=== PATIENT | female | born 1945 | race Caucasian/White ===

== ENCOUNTER 2020-02-24 13:21 | Inpatient (IN) | payer OTHER, MEDICAID, SELFPAY ==
[~2020-02-24] VITALS: Ht 152.4 cm; Wt 59.0 kg
[2020-02-24] VITALS (7 sets, daily range): BP systolic 87–178
[2020-02-24] MEDS ORDERED: NS 1000 ML IV.SOLN IV ONE (14:00)
[2020-02-24] MEDS ORDERED: PIPERACILLIN/TAZO 3.375 GM in NS 50 ML IV ONE (14:00)
[2020-02-24] MEDS ORDERED: MORPHINE 4 MG/ML INJ. SYRINGE IVP ONE (14:00)
[2020-02-24] MEDS ORDERED: PIPERACILLIN/TAZOBACTAM 3.375 GM/VIAL (ZOSYN) IV ONE (14:15)
[2020-02-24 14:17] LABS: BASOPHILS % (AUTO) 0.2 % (0.0-2.0); EOSINOPHILS % (AUTO) 0.1 % (0.0-4.0); HEMATOCRIT 43.7 % (36-48); HEMOGLOBIN 13.3 g/dL (12.0-16.0); LYMPHOCYTES # (AUTO) 1.2 K/uL (1.0-5.5); LYMPHOCYTES % (AUTO) 9.6 % (20.5-51.5); MEAN CORPUSCULAR HEMOGLOBIN 27 pg (27-31); MEAN CORPUSCULAR HGB CONC 31 % (32-36); MEAN CORPUSCULAR VOLUME 87 fL (79.0-98.0); MONOCYTES # (AUTO) 0.5 K/uL (0.0-1.0); MONOCYTES % (AUTO) 4.3 % (1.7-9.3); NEUTROPHILS # (AUTO) 10.3 K/uL (1.8-7.7); NEUTROPHILS % (AUTO) 85.8 % (40.0-70.0); PLATELET COUNT (AUTO) 145 K/uL (130-430); RED BLOOD CELL COUNT(AUTO) 5.03 MIL/uL (4.2-6.2)
[2020-02-24 14:31] LABS: ANION GAP 16 (5-15); CALCIUM 8.5 mg/dL (8.4-11.0); CREATININE 2.83 mg/dL (0.55-1.30); POTASSIUM 3.5 mmol/L (3.5-5.1); UREA NITROGEN, BLOOD 83 mg/dL (8-21)
[2020-02-24 14:35] LABS: ALANINE AMINOTRANSFERASE 20 U/L (12-78); ALBUMIN 2.9 g/dL (3.4-4.8); ASPARTATE AMINOTRANSFERASE 15 U/L (10-37); INR 1.2 (0.8-1.2); PROTHROMBIN TIME 11.9 SECS (9.5-12.5); TOTAL BILIRUBIN 0.4 mg/dL (0.0-1.0)
[2020-02-24 14:36] LABS: CHLORIDE 133 mmol/L (98-107); SODIUM SERUM 171 mmol/L (136-145)
[2020-02-24 14:37] LABS: GLUCOSE 472 mg/dL (70-99)
[2020-02-24] MEDS ORDERED: ACET-2165 PO (14:42)
[2020-02-24] MEDS ORDERED: ONDA4TAB5 PO (14:42)
[2020-02-24] MEDS ORDERED: IPRA4AER INH (14:42)
[2020-02-24 15:27] LABS: BILIRUBIN,URINE NEGATIVE (NEGATIVE); BLOOD, URINE 3+ (NEGATIVE); COLOR,URINE YELLOW (YELLOW); GLUCOSE,URINE NEGATIVE (NEGATIVE); KETONES,URINE NEGATIVE (NEGATIVE); LEUKOCYTE ESTERASE ,URINE NEGATIVE (NEGATIVE); NITRITE, URINE NEGATIVE (NEGATIVE); PH,URINE 5.5 (5.0-8.0); PROTEIN URINE NEGATIVE (NEGATIVE); UROBILINOGEN,URINE 0.2 (0.2-1.0)
[2020-02-24] MEDS ORDERED: 0.45% NACL 1,000 ML IV ONE (15:45)
[2020-02-24 15:55] LABS: CLARITY/URINE SLIGHTLY HAZY (CLEAR)
[2020-02-24 16:05] LABS: BACTERIA,URINE RARE /HPF (None Seen); WBC,URINE 0-3 /HPF (0-3)
[2020-02-24] MEDS ORDERED: 0.45% NACL 1,000 ML IV SCH (18:27)
[2020-02-24] MEDS ORDERED: LevALBUTEROL HCL 1.25 MG/0.5 ML *CONC.* VIAL.NEB (XOPENEX CONC.) INH SCH (19:00)
[2020-02-24] MEDS ORDERED: LevALBUTEROL HCL 1.25 MG/0.5 ML *CONC.* VIAL.NEB (XOPENEX CONC.) INH PRN (19:00)
[2020-02-24] MEDS ORDERED: MEROPENEM 500 MG in NS 50 ML IV ONE (19:30)
[2020-02-24] MEDS: KCL 20 mEq in 0.45% NS 1000 mL 1,000 ML IV SCH (20:35)
[2020-02-24] MEDS: ACETAMINOPHEN 650 MG SUPP.RECT RC PRN (20:38)
[2020-02-24] MEDS: INSULIN REGULAR, HUMAN 100 UNITS/ML, 10 ML VIAL (humuLIN R) SUBCUT PRN ×2 (20:38→23:14)
[2020-02-24] MEDS ORDERED: NOREPINEPHRINE 4 MG/4 ML VIAL IV ONE (23:21)
[2020-02-24] MEDS: NOREPINEPHRINE BITARTRATE 4 MG in NS 246 ML IV PRN (23:23)
[2020-02-24] MEDS: LevALBUTEROL HCL 1.25 MG/0.5 ML *CONC.* VIAL.NEB (XOPENEX CONC.) INH SCH (23:54)
[2020-02-25] VITALS (24 sets, daily range): BP systolic 93–121
[2020-02-25] MEDS: KCL 20 mEq in 0.45% NS 1000 mL 1,000 ML IV SCH ×3 (03:56→20:11)
[2020-02-25] MEDS: ACETAMINOPHEN 650 MG SUPP.RECT RC PRN (03:56)
[2020-02-25 06:58] LABS: HEMATOCRIT 37.5 % (36-48); HEMOGLOBIN 11.3 g/dL (12.0-16.0); MEAN CORPUSCULAR HEMOGLOBIN 26 pg (27-31); MEAN CORPUSCULAR HGB CONC 30 % (32-36); MEAN CORPUSCULAR VOLUME 86 fL (79.0-98.0); PLATELET COUNT (AUTO) 106 K/uL (130-430); RED BLOOD CELL COUNT(AUTO) 4.35 MIL/uL (4.2-6.2); RED CELL DISTRIBUTION WIDTH 16.7 % (9.0-15.0); WHITE BLOOD COUNT (AUTO) 23.9 K/uL (4.8-10.8)
[2020-02-25 07:05] LABS: ANION GAP 11 (5-15); CALCIUM 7.6 mg/dL (8.4-11.0); CREATININE 2.85 mg/dL (0.55-1.30); GLUCOSE 218 mg/dL (70-99); POTASSIUM 3.6 mmol/L (3.5-5.1); UREA NITROGEN, BLOOD 88 mg/dL (8-21)
[2020-02-25 07:31] LABS: ATYPICAL LYMPHOCYTES % 0 % (0-0); BAND % (MANUAL) 8 % (0-6); BASOPHILS % (MANUAL) 0 % (0-2); EOSINOPHILS % (MANUAL) 0 % (0-7); LYMPHOCYTES % (MANUAL) 10 % (20-46); MONOCYTES % (MANUAL) 2 % (0-11)
[2020-02-25 07:43] LABS: CHLORIDE 134 mmol/L (98-107); SODIUM SERUM 164 mmol/L (136-145)
[2020-02-25] MEDS: MEROPENEM 500 MG in NS 50 ML IV SCH ×2 (08:44→20:11)
[2020-02-25] MEDS: LevALBUTEROL HCL 1.25 MG/0.5 ML *CONC.* VIAL.NEB (XOPENEX CONC.) INH SCH ×2 (09:09→14:54)
[2020-02-25] MEDS: INSULIN REGULAR, HUMAN 100 UNITS/ML, 10 ML VIAL (humuLIN R) SUBCUT PRN ×3 (13:16→23:39)
[2020-02-25] MEDS: NOREPINEPHRINE BITARTRATE 4 MG in NS 246 ML IV PRN (13:17)
[2020-02-25 13:37] LABS: C-REACTIVE PROTEIN QUANT 93.1 mg/dL (0-0.5)
[2020-02-25] MEDS: ONDANSETRON HCL 4 MG/2 ML VIAL IVP PRN (16:05)
[2020-02-25 17:10] LABS: BASOPHILS % (AUTO) 0.1 % (0.0-2.0); EOSINOPHILS % (AUTO) 0.1 % (0.0-4.0); LYMPHOCYTES # (AUTO) 3.1 K/uL (1.0-5.5); MONOCYTES # (AUTO) 1.4 K/uL (0.0-1.0); MONOCYTES % (AUTO) 5.8 % (1.7-9.3); NEUTROPHILS # (AUTO) 19.3 K/uL (1.8-7.7)
[2020-02-25] MEDS: PANTOPRAZOLE SODIUM 40 MG/VIAL (PROTONIX) IVP SCH (20:11)
[2020-02-25] MEDS: DOXYCYCLINE HYCLATE 100 MG in D5W 100 ML IV SCH (20:11)
[2020-02-25] MEDS ORDERED: DOXYCYCLINE HYCLATE 100 MG CAPSULE PO SCH (21:00)
[2020-02-26] VITALS (25 sets, daily range): BP systolic 93–139
[2020-02-26] MEDS: ACETAMINOPHEN 650 MG SUPP.RECT RC PRN (05:50)
[2020-02-26] MEDS: KCL 20 mEq in 0.45% NS 1000 mL 1,000 ML IV SCH ×2 (08:29→16:53)
[2020-02-26] MEDS: PANTOPRAZOLE SODIUM 40 MG/VIAL (PROTONIX) IVP SCH ×2 (08:29→21:00)
[2020-02-26] MEDS: MEROPENEM 500 MG in NS 50 ML IV SCH ×2 (08:30→21:00)
[2020-02-26] MEDS: NOREPINEPHRINE BITARTRATE 4 MG in NS 246 ML IV PRN (09:35)
[2020-02-26] MEDS: DOXYCYCLINE HYCLATE 100 MG in D5W 100 ML IV SCH ×2 (09:48→21:00)
[2020-02-26] MEDS: INSULIN REGULAR, HUMAN 100 UNITS/ML, 10 ML VIAL (humuLIN R) SUBCUT PRN ×2 (12:47→18:41)
[2020-02-26 13:19] LABS: BASOPHILS % (AUTO) 0.1 % (0.0-2.0); EOSINOPHILS % (AUTO) 0.1 % (0.0-4.0); HEMATOCRIT 31.7 % (36-48); HEMOGLOBIN 9.7 g/dL (12.0-16.0); LYMPHOCYTES # (AUTO) 1.7 K/uL (1.0-5.5); LYMPHOCYTES % (AUTO) 10.2 % (20.5-51.5); MEAN CORPUSCULAR HEMOGLOBIN 26 pg (27-31); MEAN CORPUSCULAR HGB CONC 31 % (32-36); MEAN CORPUSCULAR VOLUME 86 fL (79.0-98.0); MONOCYTES # (AUTO) 0.9 K/uL (0.0-1.0); MONOCYTES % (AUTO) 5.5 % (1.7-9.3); NEUTROPHILS # (AUTO) 13.9 K/uL (1.8-7.7); NEUTROPHILS % (AUTO) 84.1 % (40.0-70.0); RED BLOOD CELL COUNT(AUTO) 3.69 MIL/uL (4.2-6.2); RED CELL DISTRIBUTION WIDTH 16.6 % (9.0-15.0)
[2020-02-26 13:25] LABS: WHITE BLOOD COUNT (AUTO) 16.5 K/uL (4.8-10.8)
[2020-02-26 13:48] LABS: PLATELET COUNT (AUTO) 66 K/uL (130-430)
[2020-02-26] MEDS: D5W 1,000 ML IV SCH (18:36)
[2020-02-26 22:55] LABS: INR 1.2 (0.8-1.2)
[2020-02-27] VITALS (23 sets, daily range): BP systolic 97–136
[2020-02-27] MEDS: INSULIN REGULAR, HUMAN 100 UNITS/ML, 10 ML VIAL (humuLIN R) SUBCUT PRN ×4 (00:22→17:33)
[2020-02-27] MEDS: D5W 1,000 ML IV SCH ×2 (05:15→15:22)
[2020-02-27 05:41] LABS: BASOPHILS % (AUTO) 0.2 % (0.0-2.0); EOSINOPHILS # (AUTO) 0.1 K/uL (0.0-0.4); EOSINOPHILS % (AUTO) 0.7 % (0.0-4.0); HEMATOCRIT 28.8 % (36-48); LYMPHOCYTES # (AUTO) 1.8 K/uL (1.0-5.5); LYMPHOCYTES % (AUTO) 13.1 % (20.5-51.5); MEAN CORPUSCULAR HEMOGLOBIN 26 pg (27-31); MEAN CORPUSCULAR HGB CONC 31 % (32-36); MEAN CORPUSCULAR VOLUME 84 fL (79.0-98.0); MONOCYTES # (AUTO) 0.7 K/uL (0.0-1.0); MONOCYTES % (AUTO) 4.7 % (1.7-9.3); NEUTROPHILS # (AUTO) 11.3 K/uL (1.8-7.7); NEUTROPHILS % (AUTO) 81.3 % (40.0-70.0); RED BLOOD CELL COUNT(AUTO) 3.42 MIL/uL (4.2-6.2); RED CELL DISTRIBUTION WIDTH 16.7 % (9.0-15.0); WHITE BLOOD COUNT (AUTO) 13.9 K/uL (4.8-10.8)
[2020-02-27 05:50] LABS: ALANINE AMINOTRANSFERASE 25 U/L (12-78); ALBUMIN 1.6 g/dL (3.4-4.8); ANION GAP 12 (5-15); ASPARTATE AMINOTRANSFERASE 28 U/L (10-37); CALCIUM 7.4 mg/dL (8.4-11.0); CREATININE 1.12 mg/dL (0.55-1.30); GLUCOSE 301 mg/dL (70-99); SODIUM SERUM 152 mmol/L (136-145); TOTAL BILIRUBIN 0.7 mg/dL (0.0-1.0); UREA NITROGEN, BLOOD 28 mg/dL (8-21)
[2020-02-27 05:55] LABS: CHLORIDE 122 mmol/L (98-107)
[2020-02-27 05:57] LABS: PLATELET COUNT (AUTO) 61 K/uL (130-430)
[2020-02-27] MEDS: DOXYCYCLINE HYCLATE 100 MG in D5W 100 ML IV SCH ×2 (09:05→21:31)
[2020-02-27] MEDS: MEROPENEM 500 MG in NS 50 ML IV SCH ×2 (09:05→21:30)
[2020-02-27] MEDS: PANTOPRAZOLE SODIUM 40 MG/VIAL (PROTONIX) IVP SCH ×2 (09:05→21:31)
[2020-02-27] MEDS ORDERED: KCL 40 mEq in 100 mL (PREMIX) 100 ML IV ONE (13:15)
[2020-02-27] MEDS ORDERED: DEXTROSE 50% JECT 50 ML DISP.SYRIN IVP PRN (16:15)
[2020-02-27] MEDS ORDERED: *TPN PER PHARMACY XX PRN (16:15)
[2020-02-28] VITALS (24 sets, daily range): BP systolic 90–129
[2020-02-28] MEDS: INSULIN REGULAR, HUMAN 100 UNITS/ML, 10 ML VIAL (humuLIN R) SUBCUT PRN ×3 (01:11→11:41)
[2020-02-28] MEDS: D5W 1,000 ML IV SCH ×2 (01:18→17:49)
[2020-02-28 06:03] LABS: BASOPHILS # (AUTO) 0.1 K/uL (0.0-0.2); BASOPHILS % (AUTO) 0.8 % (0.0-2.0); EOSINOPHILS # (AUTO) 0.2 K/uL (0.0-0.4); HEMATOCRIT 27.1 % (36-48); HEMOGLOBIN 8.6 g/dL (12.0-16.0); LYMPHOCYTES # (AUTO) 1.3 K/uL (1.0-5.5); LYMPHOCYTES % (AUTO) 12.1 % (20.5-51.5); MEAN CORPUSCULAR HEMOGLOBIN 27 pg (27-31); MEAN CORPUSCULAR HGB CONC 32 % (32-36); MEAN CORPUSCULAR VOLUME 84 fL (79.0-98.0); MONOCYTES # (AUTO) 0.6 K/uL (0.0-1.0); MONOCYTES % (AUTO) 5.7 % (1.7-9.3); NEUTROPHILS # (AUTO) 8.7 K/uL (1.8-7.7); NEUTROPHILS % (AUTO) 79.4 % (40.0-70.0); PLATELET COUNT (AUTO) 61 K/uL (130-430); RED BLOOD CELL COUNT(AUTO) 3.24 MIL/uL (4.2-6.2); RED CELL DISTRIBUTION WIDTH 16.4 % (9.0-15.0); WHITE BLOOD COUNT (AUTO) 10.9 K/uL (4.8-10.8)
[2020-02-28 06:33] LABS: ALANINE AMINOTRANSFERASE 31 U/L (12-78); ALBUMIN 1.3 g/dL (3.4-4.8); ANION GAP 10 (5-15); ASPARTATE AMINOTRANSFERASE 27 U/L (10-37); CHLORIDE 115 mmol/L (98-107); CREATININE 0.82 mg/dL (0.55-1.30); GLUCOSE 291 mg/dL (70-99); PHOSPHORUS 1.5 mg/dL (2.7-4.5); POTASSIUM 3.3 mmol/L (3.5-5.1); SODIUM SERUM 146 mmol/L (136-145); TOTAL BILIRUBIN 0.7 mg/dL (0.0-1.0); UREA NITROGEN, BLOOD 16 mg/dL (8-21)
[2020-02-28 06:56] LABS: CALCIUM 6.9 mg/dL (8.4-11.0)
[2020-02-28 08:37] LABS: TRIGLYCERIDES 164 mg/dL (30-150)
[2020-02-28] MEDS: MEROPENEM 500 MG in NS 50 ML IV SCH ×2 (08:43→20:59)
[2020-02-28] MEDS: DOXYCYCLINE HYCLATE 100 MG in D5W 100 ML IV SCH ×2 (08:43→20:59)
[2020-02-28] MEDS: PANTOPRAZOLE SODIUM 40 MG/VIAL (PROTONIX) IVP SCH ×2 (08:43→21:04)
[2020-02-28] MEDS ORDERED: K PHOS 30 MM in NS 250 ML IV ONE (09:45)
[2020-02-28] MEDS ORDERED: CALCIUM GLUCONATE 2 GM in NS 100 ML IV ONE (09:45)
[2020-02-28] MEDS: TPN CENTRAL IV SCH ×8 (21:00)
[2020-02-28] MEDS: MVI IV SCH ×8 (21:00)
[2020-02-28] MEDS: K PHOS IV SCH ×8 (21:00)
[2020-02-28] MEDS ORDERED: D5W 1,000 ML IV SCH (21:00)
[2020-02-28] MEDS: CALCIUM CHLORIDE IV SCH ×8 (21:00)
[2020-02-28] MEDS: [UNRECOGNIZED DRUG - OTHER] IV SCH ×8 (21:00)
[2020-02-28] MEDS: FAT EMULSIONS 250 ML IV SCH (21:04)
[2020-02-29] VITALS (23 sets, daily range): BP systolic 90–123
[2020-02-29] MEDS: INSULIN REGULAR, HUMAN 100 UNITS/ML, 10 ML VIAL (humuLIN R) SUBCUT PRN ×5 (00:06→23:55)
[2020-02-29 06:51] LABS: ALBUMIN 1.4 g/dL (3.4-4.8); ANION GAP 12 (5-15); CHLORIDE 108 mmol/L (98-107); CREATININE 0.88 mg/dL (0.55-1.30); PHOSPHORUS 2.7 mg/dL (2.7-4.5); POTASSIUM 3.2 mmol/L (3.5-5.1); SODIUM SERUM 142 mmol/L (136-145); TOTAL BILIRUBIN 0.8 mg/dL (0.0-1.0); UREA NITROGEN, BLOOD 19 mg/dL (8-21)
[2020-02-29 07:01] LABS: BASOPHILS % (AUTO) 0.2 % (0.0-2.0); EOSINOPHILS # (AUTO) 0.1 K/uL (0.0-0.4); EOSINOPHILS % (AUTO) 1.9 % (0.0-4.0); HEMATOCRIT 28.6 % (36-48); HEMOGLOBIN 9.2 g/dL (12.0-16.0); LYMPHOCYTES # (AUTO) 1.1 K/uL (1.0-5.5); LYMPHOCYTES % (AUTO) 16.3 % (20.5-51.5); MEAN CORPUSCULAR HEMOGLOBIN 27 pg (27-31); MEAN CORPUSCULAR HGB CONC 32 % (32-36); MEAN CORPUSCULAR VOLUME 83 fL (79.0-98.0); MONOCYTES # (AUTO) 0.5 K/uL (0.0-1.0); MONOCYTES % (AUTO) 6.9 % (1.7-9.3); NEUTROPHILS # (AUTO) 5.2 K/uL (1.8-7.7); NEUTROPHILS % (AUTO) 74.7 % (40.0-70.0); PLATELET COUNT (AUTO) 84 K/uL (130-430); RED BLOOD CELL COUNT(AUTO) 3.46 MIL/uL (4.2-6.2); RED CELL DISTRIBUTION WIDTH 16.4 % (9.0-15.0)
[2020-02-29] MEDS: 0.45% NACL 1,000 ML IV SCH (08:19)
[2020-02-29] MEDS: DOXYCYCLINE HYCLATE 100 MG in D5W 100 ML IV SCH ×2 (08:20→22:25)
[2020-02-29] MEDS: MEROPENEM 500 MG in NS 50 ML IV SCH ×2 (08:20→22:15)
[2020-02-29] MEDS: PANTOPRAZOLE SODIUM 40 MG/VIAL (PROTONIX) IVP SCH ×2 (08:20→22:16)
[2020-02-29 08:21] LABS: GLUCOSE 426 mg/dL (70-99)
[2020-02-29 08:22] LABS: ALANINE AMINOTRANSFERASE 73 U/L (12-78); ASPARTATE AMINOTRANSFERASE 155 U/L (10-37)
[2020-02-29] MEDS ORDERED: POTASSIUM CHLORIDE 40 MEQ in NS 250 ML IV ONE (19:45)
[2020-02-29] MEDS ORDERED: KCL 40 mEq in 100 mL (PREMIX) 100 ML IV SCH (20:00)
[2020-02-29] MEDS: K PHOS IV SCH ×8 (20:52)
[2020-02-29] MEDS: [UNRECOGNIZED DRUG - OTHER] IV SCH ×8 (20:52)
[2020-02-29] MEDS: CALCIUM CHLORIDE IV SCH ×8 (20:52)
[2020-02-29] MEDS: TPN CENTRAL IV SCH ×8 (20:52)
[2020-02-29] MEDS: MVI IV SCH ×8 (20:52)
[2020-02-29] MEDS ORDERED: TPN CENTRAL IV SCH ×9 (21:00)
[2020-02-29] MEDS ORDERED: K PHOS IV SCH ×9 (21:00)
[2020-02-29] MEDS ORDERED: MVI IV SCH ×9 (21:00)
[2020-02-29] MEDS ORDERED: [UNRECOGNIZED DRUG - OTHER] IV SCH ×9 (21:00)
[2020-02-29] MEDS ORDERED: CALCIUM GLUCONATE IV SCH ×9 (21:00)
[2020-02-29] MEDS: FAT EMULSIONS 250 ML IV SCH (22:22)
[2020-03-01] VITALS (25 sets, daily range): BP systolic 86–128
[2020-03-01 05:29] LABS: ALANINE AMINOTRANSFERASE 47 U/L (12-78); ALBUMIN 1.3 g/dL (3.4-4.8); ANION GAP 12 (5-15); CALCIUM 7.2 mg/dL (8.4-11.0); CHLORIDE 108 mmol/L (98-107); CREATININE 0.88 mg/dL (0.55-1.30); GLUCOSE 369 mg/dL (70-99); PHOSPHORUS 1.9 mg/dL (2.7-4.5); POTASSIUM 3.3 mmol/L (3.5-5.1); SODIUM SERUM 139 mmol/L (136-145); TOTAL BILIRUBIN 0.4 mg/dL (0.0-1.0); UREA NITROGEN, BLOOD 21 mg/dL (8-21)
[2020-03-01 05:32] LABS: ASPARTATE AMINOTRANSFERASE 41 U/L (10-37)
[2020-03-01] MEDS: 0.45% NACL 1,000 ML IV SCH (06:38)
[2020-03-01] MEDS: INSULIN REGULAR, HUMAN 100 UNITS/ML, 10 ML VIAL (humuLIN R) SUBCUT PRN ×3 (06:41→19:00)
[2020-03-01] MEDS: MEROPENEM 500 MG in NS 50 ML IV SCH ×2 (11:03→21:23)
[2020-03-01] MEDS: PANTOPRAZOLE SODIUM 40 MG/VIAL (PROTONIX) IVP SCH ×2 (11:03→21:23)
[2020-03-01] MEDS: DOXYCYCLINE HYCLATE 100 MG in D5W 100 ML IV SCH ×2 (11:04→21:23)
[2020-03-01] MEDS: KCL 20 mEq in 100 mL (PREMIX) 100 ML IV SCH ×2 (12:30→12:51)
[2020-03-01] MEDS: ONDANSETRON HCL 4 MG/2 ML VIAL IVP PRN (18:57)
[2020-03-01] MEDS: KCL 20 mEq in 0.45% NS 1000 mL 1,000 ML IV SCH (19:01)
[2020-03-01] MEDS ORDERED: MVI IV SCH ×9 (21:00)
[2020-03-01] MEDS ORDERED: K PHOS IV SCH ×9 (21:00)
[2020-03-01] MEDS ORDERED: [UNRECOGNIZED DRUG - OTHER] IV SCH ×9 (21:00)
[2020-03-01] MEDS ORDERED: TPN CENTRAL IV SCH ×9 (21:00)
[2020-03-01] MEDS ORDERED: SODIUM ACETATE IV SCH ×9 (21:00)
[2020-03-01] MEDS: INSULIN GLARGINE 100 UNITS/ML 10 ML VIAL SUBCUT SCH (21:26)
[2020-03-01] MEDS: FAT EMULSIONS 250 ML IV SCH (21:27)
[2020-03-02] VITALS (24 sets, daily range): BP systolic 98–144
[2020-03-02] MEDS: INSULIN REGULAR, HUMAN 100 UNITS/ML, 10 ML VIAL (humuLIN R) SUBCUT PRN ×4 (00:04→19:33)
[2020-03-02 06:10] LABS: BASOPHILS % (AUTO) 0.3 % (0.0-2.0); EOSINOPHILS # (AUTO) 0.3 K/uL (0.0-0.4); EOSINOPHILS % (AUTO) 3.7 % (0.0-4.0); HEMATOCRIT 24.6 % (36-48); HEMOGLOBIN 7.9 g/dL (12.0-16.0); LYMPHOCYTES # (AUTO) 1.3 K/uL (1.0-5.5); LYMPHOCYTES % (AUTO) 16.4 % (20.5-51.5); MEAN CORPUSCULAR HEMOGLOBIN 26 pg (27-31); MEAN CORPUSCULAR HGB CONC 32 % (32-36); MEAN CORPUSCULAR VOLUME 82 fL (79.0-98.0); MONOCYTES # (AUTO) 0.7 K/uL (0.0-1.0); MONOCYTES % (AUTO) 9.2 % (1.7-9.3); NEUTROPHILS # (AUTO) 5.7 K/uL (1.8-7.7); NEUTROPHILS % (AUTO) 70.4 % (40.0-70.0); PLATELET COUNT (AUTO) 134 K/uL (130-430); RED BLOOD CELL COUNT(AUTO) 3.01 MIL/uL (4.2-6.2); RED CELL DISTRIBUTION WIDTH 16.3 % (9.0-15.0); WHITE BLOOD COUNT (AUTO) 8.2 K/uL (4.8-10.8)
[2020-03-02 07:36] LABS: ALANINE AMINOTRANSFERASE 45 U/L (12-78); ALBUMIN 1.2 g/dL (3.4-4.8); ANION GAP 9 (5-15); ASPARTATE AMINOTRANSFERASE 45 U/L (10-37); CALCIUM 7.4 mg/dL (8.4-11.0); CHLORIDE 113 mmol/L (98-107); CREATININE 0.73 mg/dL (0.55-1.30); GLUCOSE 218 mg/dL (70-99); POTASSIUM 3.5 mmol/L (3.5-5.1); SODIUM SERUM 145 mmol/L (136-145); TOTAL BILIRUBIN 0.4 mg/dL (0.0-1.0); UREA NITROGEN, BLOOD 21 mg/dL (8-21)
[2020-03-02] MEDS: MEROPENEM 500 MG in NS 50 ML IV SCH (09:33)
[2020-03-02] MEDS: PANTOPRAZOLE SODIUM 40 MG/VIAL (PROTONIX) IVP SCH ×2 (09:33→21:39)
[2020-03-02] MEDS: DOXYCYCLINE HYCLATE 100 MG in D5W 100 ML IV SCH (09:34)
[2020-03-02] MEDS ORDERED: [UNRECOGNIZED DRUG - OTHER] IV SCH ×18 (10:45→21:00)
[2020-03-02] MEDS ORDERED: TPN CENTRAL IV SCH ×18 (10:45→21:00)
[2020-03-02] MEDS ORDERED: K PHOS IV SCH ×18 (10:45→21:00)
[2020-03-02] MEDS ORDERED: POTASSIUM ACETATE IV SCH ×18 (10:45→21:00)
[2020-03-02] MEDS ORDERED: SODIUM ACETATE IV SCH ×18 (10:45→21:00)
[2020-03-02] MEDS: INSULIN GLARGINE 100 UNITS/ML 10 ML VIAL SUBCUT SCH ×2 (11:19→21:37)
[2020-03-02] MEDS: cefTRIAXone 1 GM in D5W 50 ML IV SCH (12:30)
[2020-03-02] MEDS: metroNIDAZOLE 250 mg/NS 50 ML IV SCH ×2 (14:37→21:28)
[2020-03-02] MEDS ORDERED: ACYCLOVIR OINTMENT Non-Formula 15 GM OINT..GM. TP SCH (18:00)
[2020-03-02] MEDS: KCL 20 mEq in 0.45% NS 1000 mL 1,000 ML IV SCH (19:35)
[2020-03-02] MEDS: FAT EMULSIONS 250 ML IV SCH (21:34)
[2020-03-02] MEDS: DOCOSANOL 2 GM CREAM..G. TP SCH (21:38)
[2020-03-03] VITALS (24 sets, daily range): BP systolic 93–153
[2020-03-03] MEDS: INSULIN REGULAR, HUMAN 100 UNITS/ML, 10 ML VIAL (humuLIN R) SUBCUT PRN ×4 (00:35→17:20)
[2020-03-03] MEDS: metroNIDAZOLE 250 mg/NS 50 ML IV SCH ×3 (05:30→21:12)
[2020-03-03] MEDS: DOCOSANOL 2 GM CREAM..G. TP SCH ×6 (05:31→21:11)
[2020-03-03 05:43] LABS: ANION GAP 7 (5-15); CHLORIDE 109 mmol/L (98-107); CREATININE 0.61 mg/dL (0.55-1.30); GLUCOSE 237 mg/dL (70-99); PHOSPHORUS 2.5 mg/dL (2.7-4.5); POTASSIUM 3.9 mmol/L (3.5-5.1); SODIUM SERUM 143 mmol/L (136-145); UREA NITROGEN, BLOOD 19 mg/dL (8-21)
[2020-03-03] MEDS: PANTOPRAZOLE SODIUM 40 MG/VIAL (PROTONIX) IVP SCH ×2 (08:15→21:09)
[2020-03-03] MEDS: cefTRIAXone 1 GM in D5W 50 ML IV SCH (08:15)
[2020-03-03] MEDS: INSULIN GLARGINE 100 UNITS/ML 10 ML VIAL SUBCUT SCH ×2 (08:18→21:10)
[2020-03-03] MEDS: KCL 20 mEq in 0.45% NS 1000 mL 1,000 ML IV SCH (17:16)
[2020-03-03] MEDS ORDERED: TPN CENTRAL IV SCH ×9 (21:00)
[2020-03-03] MEDS ORDERED: K PHOS IV SCH ×9 (21:00)
[2020-03-03] MEDS ORDERED: SODIUM CHLORIDE IV SCH ×9 (21:00)
[2020-03-03] MEDS ORDERED: POTASSIUM ACETATE IV SCH ×9 (21:00)
[2020-03-03] MEDS ORDERED: [UNRECOGNIZED DRUG - OTHER] IV SCH ×9 (21:00)
[2020-03-03] MEDS: FAT EMULSIONS 250 ML IV SCH (21:09)
[2020-03-04] VITALS (20 sets, daily range): BP systolic 93–130
[2020-03-04] MEDS: INSULIN REGULAR, HUMAN 100 UNITS/ML, 10 ML VIAL (humuLIN R) SUBCUT PRN ×4 (00:06→18:08)
[2020-03-04] MEDS: DOCOSANOL 2 GM CREAM..G. TP SCH ×5 (05:36→18:10)
[2020-03-04] MEDS: metroNIDAZOLE 250 mg/NS 50 ML IV SCH ×2 (06:02→12:37)
[2020-03-04 06:08] LABS: ANION GAP 6 (5-15); CALCIUM 7.2 mg/dL (8.4-11.0); CHLORIDE 108 mmol/L (98-107); CREATININE 0.67 mg/dL (0.55-1.30); GLUCOSE 220 mg/dL (70-99); PHOSPHORUS 2.9 mg/dL (2.7-4.5); POTASSIUM 4.5 mmol/L (3.5-5.1); SODIUM SERUM 143 mmol/L (136-145); UREA NITROGEN, BLOOD 18 mg/dL (8-21)
[2020-03-04] MEDS: INSULIN GLARGINE 100 UNITS/ML 10 ML VIAL SUBCUT SCH (09:15)
[2020-03-04] MEDS: cefTRIAXone 1 GM in D5W 50 ML IV SCH (09:15)
[2020-03-04] MEDS: PANTOPRAZOLE SODIUM 40 MG/VIAL (PROTONIX) IVP SCH (09:16)
[2020-03-04] MEDS: KCL 20 mEq in 0.45% NS 1000 mL 1,000 ML IV SCH (18:09)
[2020-03-04] MEDS ORDERED: [UNRECOGNIZED DRUG - OTHER] IV SCH ×9 (21:00)
[2020-03-04] MEDS ORDERED: SODIUM CHLORIDE IV SCH ×9 (21:00)
[2020-03-04] MEDS ORDERED: TPN CENTRAL IV SCH ×9 (21:00)
[2020-03-04] MEDS ORDERED: K PHOS IV SCH ×9 (21:00)
[2020-03-04] MEDS ORDERED: POTASSIUM ACETATE IV SCH ×9 (21:00)
== END 2020-03-04 19:35 | DRG 871 ==
LOC: SED 13:21 → STU 15:34 → EEVIPCON 15:34 → SED 15:39 → STU 15:39 → SIC 22:29
PROVIDERS: ADMIT Family Medicine; ATTEND Family Medicine
PROC: 5A09557 Assistance with Respiratory Ventilation, Greater than 96 Consecutive Hours, Continuous Positive Airway Pressure (ICD-10-PCS; 2020-02-24)
PROC: 02HV33Z Insertion of Infusion Device into Superior Vena Cava, Percutaneous Approach (ICD-10-PCS; principal; 2020-02-27)
PROC: B548ZZA Ultrasonography of Superior Vena Cava, Guidance (ICD-10-PCS; 2020-02-27)
DX: A41.9 Sepsis, unspecified organism (principal); J69.0 Pneumonitis due to inhalation of food and vomit; J96.00 Acute respiratory failure, unspecified whether with hypoxia or hypercapnia; E43 Unspecified severe protein-calorie malnutrition; R65.21 Severe sepsis with septic shock; N17.9 Acute kidney failure, unspecified; E87.0 Hyperosmolality and hypernatremia; N39.0 Urinary tract infection, site not specified; E11.22 Type 2 diabetes mellitus with diabetic chronic kidney disease; E11.65 Type 2 diabetes mellitus with hyperglycemia; Z20.828 Contact with and (suspected) exposure to other viral communicable diseases; E86.0 Dehydration; N18.9 Chronic kidney disease, unspecified; F03.90 Unspecified dementia, unspecified severity, without behavioral disturbance, psychotic disturbance, mood disturbance, and anxiety; I12.9 Hypertensive chronic kidney disease with stage 1 through stage 4 chronic kidney disease, or unspecified chronic kidney disease; Y95 Nosocomial condition; Z66 Do not resuscitate; Z79.899 Other long term (current) drug therapy
CPT/HCPCS: 36415; 71045; 80048; 80053; 81000-TC; 82728; 82962; 83605; 83615-TC; 83735-TC; 84100-TC; 84478-TC; 85007; 85025; 85027; 85610-TC; 85730-TC; 86140; 87040-TC; 87081; 87086; 87230-TC; 92610-GN; 94003; 94640; 94660; 96365; 96375; 99291; A6209; C1751; C9113; J0610; J0696; J1815; J2185; J2270; J2405; J2543; J3475; J3480; J3490; J7030; J7050; J7060; J7131; J7612

== ENCOUNTER 2020-04-16 22:08 | Emergency (ER) | payer OTHER, MEDICAID, SELFPAY ==
[~2020-04-16] VITALS: Ht 162.6 cm; Wt 54.4 kg
[2020-04-16 22:15] VITALS: BP_SYST 140
--- NOTE | 2020-04-16 22:15 | NUR ---
Patient to ER bed 01 to gown for evaluation. Side rails up.
--- NOTE | 2020-04-16 22:20 | NUR ---
Patient arrived BLS from [facility] for Gtube dislodgment approximately 2009 tonight. Patient transferred from [facility] today to [facility]. Patient was tested for Covid 19 2 days ago and results were negative. Patient is non verbal arrives with clayton catheter in place. Patient previously had [address] Denies any pain. No other complaints/injuries per patient or as noted. Will continue to monitor.
--- NOTE | 2020-04-16 22:25 | NUR ---
ER Dr. Blanchard at bedside examining patient.
--- NOTE | 2020-04-16 22:30 | NUR ---
Dr. Blanchard at bedside for Gtube reinsertion. Patient tolerated well. Xray ordered for placement
--- NOTE | 2020-04-16 23:07 | NUR ---
Patient resting quietly. No acute distress noted. Vital signs within normal range.
[2020-04-16] MEDS ORDERED: GASTROGRAFIN 120 ML ONE (23:23)
--- NOTE | 2020-04-17 00:43 | NUR ---
Called report to ELIZABETH Monaco at [facility]. Patient will be returning to [facility] awaiting BLS transport
--- NOTE | 2020-04-17 01:15 | NUR ---
Note lakshmione in ED - 04/17/20 at 0133 by LIMA Patient given written and verbal discharge instructions and verbalizes understanding. ER discussed with patient the results and treatment provided. Patient in stable condition. ID arm band removed. Patient educated on pain management and to follow up with PMD. Pain Scale 0/10. Opportunity for questions provided and answered. Medication side effect fact sheet provided.
[2020-04-17 01:20] VITALS: BP_SYST 140
--- NOTE | 2020-04-17 01:20 | NUR ---
Patient taken to [facility] via gurney given written and verbal discharge instructions. Report called to ELIZABETH Monaco at facility. ER MD discussed with patient the results and treatment provided. Patient in stable condition. ID arm band removed. Patient educated on pain management and to follow up with PMD. Pain Scale 0/10. Opportunity for questions provided and answered. Medication side effect fact sheet provided.
== END 2020-04-17 01:20 | disposition home or self-care (01) ==
LOC: SED 22:08
DX: K94.23 Gastrostomy malfunction (principal); E11.9 Type 2 diabetes mellitus without complications; Z87.440 Personal history of urinary (tract) infections
CPT/HCPCS: 43762; 51702; 74240; 99284; Q9963

== ENCOUNTER 2020-06-04 07:23 | Emergency (ER) | payer OTHER, MEDICAID ==
[~2020-06-04] VITALS: Ht 157.5 cm; Wt 54.4 kg
[2020-06-04 07:23] VITALS: BP_SYST 150
--- NOTE | 2020-06-04 07:23 | NUR ---
[facility]
--- NOTE | 2020-06-04 07:35 | NUR ---
DR REYES INSERTING GTUBE
--- NOTE | 2020-06-04 07:45 | NUR ---
[facility] EMT EBONI given written and verbal discharge instructions and verbalizes understanding. ER discussed with ANGELINA the results and treatment provided. Patient in stable condition. ID arm band removed. Rx of NONE given. Patient educated on pain management and to follow up with PMD. Pain Scale 0/10 Opportunity for questions provided and answered. Medication side effect fact sheet provided.
[2020-06-04 07:47] VITALS: BP_SYST 148
== END 2020-06-04 07:45 | disposition home or self-care (01) ==
LOC: SED 07:23
DX: K94.23 Gastrostomy malfunction (principal); E11.9 Type 2 diabetes mellitus without complications; Z87.440 Personal history of urinary (tract) infections
CPT/HCPCS: 99284

== ENCOUNTER 2020-08-12 18:39 | Inpatient (IN) | payer OTHER, MEDICAID ==
[~2020-08-12] VITALS: Ht 162.6 cm; Wt 52.2 kg
[2020-08-12 18:40] VITALS: BP_SYST 139
--- NOTE | 2020-08-12 18:40 | NUR ---
Patient to ER bed 4 to gown for evaluation. Side rails up. Report given to NEGIN.
--- NOTE | 2020-08-12 18:45 | NUR ---
ER Dr. CHERRY at bedside examining patient.
--- NOTE | 2020-08-12 18:48 | NUR ---
PT ALERT [facility] FOR G TUBE REPLACEMENT. PT ARRIVES FROM [facility] AND CONTRACTURES ARE NOTED IN ALL EXTREMITIES. PT TRIAGED AND V/S OBTAINED.
[2020-08-12] MEDS ORDERED: VANCOMYCIN HCL 1,000 MG in NS 250 ML IV ONE (19:15)
[2020-08-12] MEDS ORDERED: ONDANSETRON HCL 4 MG/2 ML VIAL IVP ONE (19:15)
[2020-08-12] MEDS ORDERED: MORPHINE 4 MG/ML INJ. SYRINGE IVP ONE (19:15)
[2020-08-12] MEDS ORDERED: NACL 0.9% 1,000 ML IV ONE ×2 (19:15→20:45)
[2020-08-12] MEDS ORDERED: CLINDAMYCIN 300 MG/50 ML D5W 50 ML IV ONE (19:15)
--- NOTE | 2020-08-12 19:38 | NUR ---
G tube removed, wound/stoma care provided, Cx sent. Well tolerated
[2020-08-12 19:44] LABS: ANION GAP 10 (5-15); CALCIUM 9.3 mg/dL (8.4-11.0); CHLORIDE 103 mmol/L (98-107); CREATININE 0.75 mg/dL (0.55-1.30); GLUCOSE 155 mg/dL (70-99); POTASSIUM 4.1 mmol/L (3.5-5.1); SODIUM SERUM 140 mmol/L (136-145); UREA NITROGEN, BLOOD 30 mg/dL (8-21)
[2020-08-12] MEDS ORDERED: VANCOMYCIN HCL 1000 MG/VIAL IV ONE (19:46)
[2020-08-12 19:51] LABS: BASOPHILS # (AUTO) 0.1 K/uL (0.0-0.2); BASOPHILS % (AUTO) 0.5 % (0.0-2.0); EOSINOPHILS # (AUTO) 0.1 K/uL (0.0-0.4); EOSINOPHILS % (AUTO) 0.8 % (0.0-4.0); HEMATOCRIT 36.3 % (36-48); HEMOGLOBIN 12.4 g/dL (12.0-16.0); LYMPHOCYTES # (AUTO) 4.7 K/uL (1.0-5.5); LYMPHOCYTES % (AUTO) 29.9 % (20.5-51.5); MEAN CORPUSCULAR HEMOGLOBIN 32 pg (27-31); MEAN CORPUSCULAR HGB CONC 34 % (32-36); MEAN CORPUSCULAR VOLUME 95 fL (79.0-98.0); MONOCYTES # (AUTO) 1.8 K/uL (0.0-1.0); MONOCYTES % (AUTO) 11.6 % (1.7-9.3); NEUTROPHILS % (AUTO) 57.2 % (40.0-70.0); PLATELET COUNT (AUTO) 330 K/uL (130-430); RED BLOOD CELL COUNT(AUTO) 3.82 MIL/uL (4.2-6.2); RED CELL DISTRIBUTION WIDTH 14.2 % (9.0-15.0); WHITE BLOOD COUNT (AUTO) 15.7 K/uL (4.8-10.8)
[2020-08-12 19:55] LABS: ALANINE AMINOTRANSFERASE 16 U/L (12-78); ALBUMIN 2.8 g/dL (3.4-4.8); ASPARTATE AMINOTRANSFERASE 11 U/L (10-37); TOTAL BILIRUBIN 0.6 mg/dL (0.0-1.0)
[2020-08-12] MEDS ORDERED: CLINDAMYCIN 600 mg/50mL D5W 50 ML IV ONE (20:03)
--- NOTE | 2020-08-12 20:14 | NUR ---
Note undone in EDM - 08/12/20 at 2020 by JUAN Patient given written and verbal discharge instructions and verbalizes understanding. ER discussed with patient the results and treatment provided. Patient in stable condition. ID arm band removed. Rx of Keflex given. Patient educated on pain management and to follow up with PMD. Pain Scale 0/10 Opportunity for questions provided and answered. Medication side effect fact sheet provided.
--- NOTE | 2020-08-12 20:45 | NUR ---
Pt to Radiology in stable condition
--- NOTE | 2020-08-12 21:08 | NUR ---
Pt back from Radiology, well tolerated
--- NOTE | 2020-08-12 21:45 | NUR ---
Implemented clayton cath, and 2nd L NS bolus, well tolerated
[2020-08-12] MEDS ORDERED: INSU100I26 SQ (22:04)
[2020-08-12] MEDS ORDERED: TYC3 GT (22:04)
[2020-08-12] MEDS ORDERED: APIX5TAB4 GT (22:04)
[2020-08-12] MEDS ORDERED: LANS30CA53 GT (22:04)
[2020-08-12] MEDS ORDERED: ARGI1POW17 GT (22:04)
[2020-08-12] MEDS ORDERED: MULT-1117 GT (22:04)
[2020-08-12] MEDS ORDERED: ASCO500T20 GT (22:04)
[2020-08-12] MEDS ORDERED: IPRA4AER INH (22:04)
[2020-08-12] MEDS ORDERED: CAT3PAT TD (22:04)
[2020-08-12] MEDS ORDERED: SSREG SUBCUT (22:04)
[2020-08-12] MEDS ORDERED: LISI10TA5 GT (22:04)
[2020-08-12] MEDS ORDERED: POLY17PO4 GT (22:04)
--- NOTE | 2020-08-12 22:04 | NUR ---
Medication reconciliation completed with information provided by MEHNAZ GUZMAN. Any prior medication reconciliation on file was reviewed and corrected.
[2020-08-12] MEDS ORDERED: ACETAMINOPHEN 325 MG TABLET PO PRN (23:15)
--- NOTE | 2020-08-12 23:48 | NUR ---
Patient will be admitted to care of Dr. Benjamin. Admitted to MedSurg unit. Will go to room 113. Belongings list completed. Complete and up to date summary report printed. SBAR report to be given at bedside with opportunity for questions.
--- NOTE | 2020-08-12 23:50 | NUR ---
ADMISSION: The patient, EVELYN HAUSER, 74 y/o, F admitted by KRISTOPHER VEE MD, was given written information regarding hospital policies, unit procedures and contact persons. Valuables were checked and pt oriented to her room and surrounding.
[2020-08-13 00:30] VITALS: BP_SYST 166
[2020-08-13] MEDS: KCL 20 mEq in D5/0.45NS 1000mL 1,000 ML IV SCH ×2 (01:12→13:29)
[2020-08-13] MEDS ORDERED: KCL 20 mEq in D5/0.45NS 1000mL 1,000 ML IV ONE (01:28)
--- NOTE | 2020-08-13 04:52 | NUR ---
CONSULT CONSULT CALLED FOR DR. GARCÍA I SPOKE WITH BRANDON REASON FOR CONSULT: CELLULITIS OF ABDOMINAL WALL REQUESTING CONSULT: DR. VEE CORE DRIER PHONE NUMBER: [phone]
[2020-08-13 06:55] LABS: ALANINE AMINOTRANSFERASE 8 U/L (12-78); ALBUMIN 2.2 g/dL (3.4-4.8); ANION GAP 8 (5-15); ASPARTATE AMINOTRANSFERASE 14 U/L (10-37); CALCIUM 8.3 mg/dL (8.4-11.0); CHLORIDE 109 mmol/L (98-107); CREATININE 0.52 mg/dL (0.55-1.30); GLUCOSE 140 mg/dL (70-99); SODIUM SERUM 142 mmol/L (136-145); TOTAL BILIRUBIN 0.4 mg/dL (0.0-1.0); UREA NITROGEN, BLOOD 20 mg/dL (8-21)
[2020-08-13 07:25] LABS: BASOPHILS # (AUTO) 0.1 K/uL (0.0-0.2); BASOPHILS % (AUTO) 0.8 % (0.0-2.0); EOSINOPHILS # (AUTO) 0.4 K/uL (0.0-0.4); EOSINOPHILS % (AUTO) 4.1 % (0.0-4.0); HEMATOCRIT 32.6 % (36-48); HEMOGLOBIN 10.7 g/dL (12.0-16.0); LYMPHOCYTES # (AUTO) 2.3 K/uL (1.0-5.5); LYMPHOCYTES % (AUTO) 24.3 % (20.5-51.5); MEAN CORPUSCULAR HEMOGLOBIN 32 pg (27-31); MEAN CORPUSCULAR HGB CONC 33 % (32-36); MEAN CORPUSCULAR VOLUME 97 fL (79.0-98.0); MONOCYTES # (AUTO) 1.2 K/uL (0.0-1.0); MONOCYTES % (AUTO) 12.9 % (1.7-9.3); NEUTROPHILS # (AUTO) 5.5 K/uL (1.8-7.7); NEUTROPHILS % (AUTO) 57.9 % (40.0-70.0); PLATELET COUNT (AUTO) 277 K/uL (130-430); RED BLOOD CELL COUNT(AUTO) 3.36 MIL/uL (4.2-6.2); RED CELL DISTRIBUTION WIDTH 14.1 % (9.0-15.0); WHITE BLOOD COUNT (AUTO) 9.4 K/uL (4.8-10.8)
[2020-08-13 08:00] VITALS: BP_SYST 115
--- NOTE | 2020-08-13 08:15 | NUR ---
Opening Notes Patient is laying in bed, resting at this time. Alert and oriented x1. Noted with some wheezing, saturating at 93% on RA. No use of accessory muscles. IV site on left FA, 20 gauge intact, flushing well at this time. No infiltration or irritation noted. D5 1/2 NS + KCl 20 mEq @ 75 cc/hr, infusing well. Patient is contracted on all extremities. Patient is incontinent, cleaned and left dry. Repositioned with pillows. Flores catheter draining by gravity, yellow and clear urine noted. Patient is noted with a dressing on the sacral area. Remains NPO at this time. GTUBE site noted, dressing intact at this time. No residual noted at this time. All needs met at this time. Safety and fall precautions in place. Call light within reach. Bed in lowest position, alarm on, locked. Will continue to monitor.
--- NOTE | 2020-08-13 09:00 | NUR ---
Nutrition Update Derian Scale 12 noted. Pt admitted for cellulitis of the abd wall Diet: NPO BMI: 19.7 kg/m2 RD to follow per nutrition care standards.
[2020-08-13] MEDS: CEFEPIME 1 GM in D5W 50 ML IV SCH ×2 (09:43→21:58)
--- NOTE | 2020-08-13 10:44 | NUR ---
Notes Patient is sleeping in bed at this time. Still noted with some wheezing at this time. NO use of accessory muscles. Patient shows no signs or symptoms of pain at this time. IV ATB infusing at this time. Repositioned in bed with pillows. All needs met. Will continue to monitor,
[2020-08-13] MEDS: FLUCONAZOLE 200 mg/ NS 100 ML IV SCH (10:54)
--- NOTE | 2020-08-13 12:00 | NUR ---
Notes Patient is laying in bed resting at this time. Patient is noted biting at her gown and crying. Patient was repositioned with pillows, clean and left dry. No resp distress noted. Breathing is even and unlabored. No needs at this time. Will continue to monitor.
[2020-08-13 12:14] VITALS: BP_SYST 155
--- NOTE | 2020-08-13 14:15 | NUR ---
Notes Patient is sleeping at this time. No resp distress noted. Will continue to monitor.
[2020-08-13] MEDS ORDERED: ACETAMINOPHEN 650 MG SUPP.RECT RC PRN (15:00)
--- NOTE | 2020-08-13 15:15 | NUR ---
WOUND EVALUATION: Wound Consult received from Dr. Benjamin. Thank you Dr. Benjamin for the consult. Patient received in a Bartlett Bed with an IsoFlex GIFTY mattress with low air loss therapy, awake, confused, non-responsive to verbal commands, resists assessment by pulling away. Patient is unable to turn in bed independently. Derian Score is a 12. Past Medical History: Diabetes Mellitus, Dementia, history of influenza A and B, Dementia, contractures all extremities. Admitted for accidental G-Tube dislodgement . Recent Labs: WBC 9.4 (15.7 on 08/12/20), RBC 3.36, hemoglobin 10.7, hematocrit 32.6, chloride 109, BUN 20, creatinine 0.52, glucose 140, calcium 8.3, alkaline phosphatase 129, albumin 2.2. Microbiology: MRSA Screen results in progress. Blood Culture results x 2 in progress. Abdominal abscess culture results in progress. Intrinsic factors that delay wound healing: Diabetes Mellitus, Hypoalbuminemia, Hyperglycemia. Extrinsic factors that delay wound healing: Immobility. Wound Assessment: 1. Left Medial Heel: Unstageable pressure ulcer, present on admission 90% light yellow tissue, 10% brown slough. No odor, scant yellow drainage. Periwound intact. Wound measures 2.0 cm x 2.0 cm. Recommend: Cleanse wound with normal saline. Apply moisture barrier cream to periwound. Apply Venelex ointment to wound bed. Cover with foam dressing. Perform wound care daily, and as needed for dressing soiling or dislodgment. Offload site at all times. Offload, elevate and float bilateral heels with pillows (place one pillow between knees and ankles; place one pillow folded in half underneath leg that is resting on bed so that it floats). DO NOT ALLOW HEEL TO TOUCH BED OR OTHER SURFACES AT ANY TIME. HEEL MUST FLOAT FREELY. 2. Left Lateral Foot Near Fifth Metatarsal Head: Stage IV pressure ulcer, present on admission. Wound bed has 85% dark red tissue, 15% yellow slough. No odor, scant yellow drainage. Periwound intact. Bone is visible. Wound measures 5.2 cm x 2.0 cm. Recommend: Cleanse wound with normal saline. Apply moisture barrier cream to periwound. Apply Venelex ointment to wound bed. Cover with foam dressing. Perform wound care daily, and as needed for dressing soiling or dislodgment. Offload site at all times. Offload, elevate and float bilateral heels with pillows (place one pillow between knees and ankles; place one pillow folded in half underneath leg that is resting on bed so that it floats). DO NOT ALLOW HEEL TO TOUCH BED OR OTHER SURFACES AT ANY TIME. HEEL MUST FLOAT FREELY. 3. Sacral-Coccygeal Area: Stage IV pressure ulcer, present on admission. Wound bed has 70% brown slough, 30% dark red tissue. No odor, scant yellow drainage. Periwound pink, macerated. Bone is palpable. Wound measures 2.0 cm x 2.0 cm x 0.9 cm. Recommend: Cleanse wound with normal saline. Apply moisture barrier cream to periwound. Apply Venelex ointment to wound bed. Pack wound with 1/4 inch iodoform packing strip. Cover with Sacral foam dressing. Perform wound care daily, and as needed for dressing soiling or dislodgment. Offload site at all times. 4. Abdomen: G-tube exit site (recent accidental dislodgment) with possible abscess or fistula, present on admission. Open area measures 0.7 cm x 1.4 cm x 6.6 cm. Ludy-wound has yellow tissue. Surrounding tissue has erythema. Mild odor, copious amounts of black drainage (possible gastric contents) draining from site with small amount of blood. Recommend: Cleanse wound with normal saline. Apply moisture barrier cream to periwound and surrounding erythematous tissue. Cover with alginate dressing, then ABD pad. Secure with paper tape. Perform wound care daily, and as needed for dressing soiling or dislodgment. Also recommend: Reposition patient side to side only every 2 hours with pillow support and off-load pressure areas with pillows for pressure re-distribution. Place pillows underneath pelvis and thigh to float area. Should be able to slide hand freely underneath pelvis. DO NOT PLACE PATIENT FLAT ON BACK EVER. Offload, elevate and float bilateral heels with pillows (place one pillow between knees and ankles; place one pillow folded in half underneath leg that is resting on bed so that it floats). Perform skin care and monitor skin integrity Q shift. Use moisture barrier cream on buttocks and other moisture susceptible areas QID and as needed for soiling. Maintain patient on a low air-loss mattress. Recommend surgical consult. Dr. Benjamin viewed the Abdominal wound and said that he would order a GI consult.
--- NOTE | 2020-08-13 16:00 | NUR ---
Notes Patient is laying in bed, noted with agitation, biting her gown. No resp distress noted. Breathing is even and unlabored. GTUBE site on abdomen is leaking at this time. Applied abdominal pad and taped down. All needs met at this time. Bed in lowest position, alarm on, locked. Will continue to monitor.
[2020-08-13 16:15] VITALS: BP_SYST 136
--- NOTE | 2020-08-13 17:30 | NUR ---
Patient is being seen and examined by DR. VEE
--- NOTE | 2020-08-13 17:48 | NUR ---
Blood Sugar Patients BS was noted at 162 mg/dL. Per sliding scale, order reads to administer 2 units of regular insulin. Patient remains NPO, nurse will not administer insulin. Charge nurse made aware. Patient shows no signs of hypglycemia or hyperglycemia. Will continue to monitor. Addendum: 08/14/20 at 1917 by Kenzie Robins RN CORRECTION: Patient was given 2 units of regular insulin.
[2020-08-13] MEDS: INSULIN REGULAR, HUMAN 100 UNITS/ML, 10 ML VIAL (humuLIN R) SUBCUT PRN (17:52)
--- NOTE | 2020-08-13 18:55 | NUR ---
Closing Notes Patient is laying in bed resting at this time, alert and oriented x1. Oriented to name, patient speaks bengali only. Patient is ntoed with some agitation and noted biting at her hospital gown and pulling at her lines. No resp distress noted. Breathing is even and unlabored. Shows no signs of pain at this time. Repositioned with pillows. IV site on left FA, 20 gauge intact at this time, wrapped in gauze, flushing well at this time. KCl 20 mEq + D5 1/2 NS @ 75 cc/hr, infusing well at this time. No signs of infiltration or irritation. Patient remains NPO. Flores catheter in place, draining by gravity, yellow and clear urine noted. No foul odor at this time. Seizure precautions in place. Bed in lowest position, alarm on, locked. All needs met at this time. Will continue to monitor.
--- NOTE | 2020-08-13 19:25 | NUR ---
Opening note Received patient after report from dayshift nurse and assumed care. Patient in bed resting with eyes opened. Unable to verbalize complains or state discomfort. Unable to follow commands. requires full care and repositioning. will continue to monitor patient as per unit protocol.
[2020-08-13 20:00] VITALS: BP_SYST 137
--- NOTE | 2020-08-13 21:00 | NUR ---
Assessment completed. Patient repositioned for comfort. Able to respond when with one word to questions when speaking Malian. Flores catheter continues to be patent and draining to gravity. IVF infusing; no signs of infiltration noted.
[2020-08-13] MEDS: ENOXAPARIN SODIUM 40 MG/0.4 ML SYRINGE SUBCUT SCH (21:58)
[2020-08-13 22:11] VITALS: BP_SYST 129
--- NOTE | 2020-08-13 22:30 | NUR ---
Pt is awake and resting quietly in bed. IVF is infusing well in LFA at 75ml/hr without any signs of infiltration. Bed alarm is on and bed is in the lowest/locked positions.
[2020-08-13] MEDS: VANCOMYCIN HCL 750 MG in NS 250 ML IV SCH (22:34)
[2020-08-14 00:20] VITALS: BP_SYST 121
--- NOTE | 2020-08-14 00:30 | NUR ---
No acute distress noted at this time. IVF is infusing well in [facility]. Fall and safety precautions are in place.
--- NOTE | 2020-08-14 01:14 | NUR ---
CONSULTATION PAGED/CALLED Reason for Consultation: GT DYSFUNCTION Person Who was Notified: MALA Consulting Physician: DAQUAN Master Chef Specialty: GI Ordering Physician: MARIUSZ
[2020-08-14] MEDS: KCL 20 mEq in D5/0.45NS 1000mL 1,000 ML IV SCH ×2 (01:55→09:17)
--- NOTE | 2020-08-14 02:30 | NUR ---
Pt is sleeping comfortably in bed. IVF is infusing well in LFA. Bed alarm is on and bed is in the lowest/locked positions.
--- NOTE | 2020-08-14 04:30 | NUR ---
Pt continues to sleep without any distress noted. IVF is infusing well in LFA. Fall and safety precautions are in place.
[2020-08-14] MEDS: INSULIN REGULAR, HUMAN 100 UNITS/ML, 10 ML VIAL (humuLIN R) SUBCUT PRN ×2 (05:46→17:55)
--- NOTE | 2020-08-14 06:10 | NUR ---
COMMUNICATION WITH FAMILY PATIENT'S DAUGHTER COLETTE CALLED FOR CONSENT FOR MIDLINE PLACEMENT FOR PPN NUTRITION; DAUGHTER COLETTE VERBALIZED SHE WANTS TO DISCUSS DECISION WITH HER SISTER AND WILL CALL [facility] BACK WITH AN ANSWER SOON. Addendum: 08/15/20 at 2221 by Almita Mariee RN NOTE INTENDED FOR DIFFERENT TIME.
--- NOTE | 2020-08-14 06:19 | NUR ---
Pt is awake and resting quietly in bed. IVF is infusing well in LFA without any signs of infiltration. Accucheck 167 this AM and 2 units Regular Insulin given SQ. Fall and safety precautions are in place. Will endorse to day shift nurse.
[2020-08-14 06:36] LABS: BASOPHILS # (AUTO) 0.1 K/uL (0.0-0.2); EOSINOPHILS # (AUTO) 0.1 K/uL (0.0-0.4); EOSINOPHILS % (AUTO) 1.4 % (0.0-4.0); HEMATOCRIT 34.1 % (36-48); HEMOGLOBIN 11.6 g/dL (12.0-16.0); LYMPHOCYTES # (AUTO) 2.2 K/uL (1.0-5.5); LYMPHOCYTES % (AUTO) 26.8 % (20.5-51.5); MEAN CORPUSCULAR HEMOGLOBIN 32 pg (27-31); MEAN CORPUSCULAR HGB CONC 34 % (32-36); MEAN CORPUSCULAR VOLUME 95 fL (79.0-98.0); MONOCYTES % (AUTO) 11.9 % (1.7-9.3); NEUTROPHILS # (AUTO) 4.8 K/uL (1.8-7.7); NEUTROPHILS % (AUTO) 58.9 % (40.0-70.0); PLATELET COUNT (AUTO) 299 K/uL (130-430); RED BLOOD CELL COUNT(AUTO) 3.59 MIL/uL (4.2-6.2); RED CELL DISTRIBUTION WIDTH 13.3 % (9.0-15.0); WHITE BLOOD COUNT (AUTO) 8.2 K/uL (4.8-10.8)
[2020-08-14 07:12] LABS: ANION GAP 9 (5-15); CALCIUM 8.7 mg/dL (8.4-11.0); CHLORIDE 105 mmol/L (98-107); CREATININE 0.61 mg/dL (0.55-1.30); GLUCOSE 168 mg/dL (70-99); POTASSIUM 3.9 mmol/L (3.5-5.1); SODIUM SERUM 139 mmol/L (136-145); UREA NITROGEN, BLOOD 13 mg/dL (8-21)
--- NOTE | 2020-08-14 07:42 | NUR ---
Opening Notes Patient is laying in bed resting at this time. Alert and oriented x1. No resp distress noted. Breathing is even and unlabored. Patient shows no signs of pain at this time. IV site on left FA, 22 gauge intact at this time. Flushing well, no infiltration or irritation noted. Pt is contracted, elevated feet with pillows. Repositioned in bed. Patient is noted removing her abdominal dressing. Agitation noted, biting on her gown. Flores catheter draining by gravity. Yellow and clear urine, some sedimentation noted. All needs met. Safety, seizure precautions and fall precautions in place. Bed in lwoest position, alarm on, locked. Will continue to monitor.
[2020-08-14 08:00] VITALS: BP_SYST 153
[2020-08-14] MEDS: BALSAM PERU/CASTOR OIL 60 GM OINT...G. TP SCH (09:13)
[2020-08-14] MEDS: CEFEPIME 1 GM in D5W 50 ML IV SCH ×2 (09:13→20:38)
--- NOTE | 2020-08-14 10:00 | NUR ---
Notes/Wound Care/BED BATH Patient was given a bed bath d/t soiled dressing and sheets. Given new linens. Repositioned in bed. No resp distress noted. Breathing is even and unlabored. Completed wound care on coccyx and left foot. Patient became agitated during dressing change, biting on her gown. Patient shows no pain at this time. Will continue to monitor.
[2020-08-14] MEDS: FLUCONAZOLE 200 mg/ NS 100 ML IV SCH (11:02)
--- NOTE | 2020-08-14 11:06 | NUR ---
Blood Sugar Patient BS was noted at 130 mg/dL. Per sliding scale, no needed coverage at this time. Patient remains NPO at this time. Will continue to monitor.
--- NOTE | 2020-08-14 11:07 | NUR ---
CRITICAL: MRSA POSITIVE OF THE NARES Received critical from LAB, MRSA positive of the nares
--- NOTE | 2020-08-14 12:00 | NUR ---
Notes Patient is laying in bed resting at this time.Alert and oriented x1. No resp distress noted. Breathing is even and unlabored. Patient shows no signs of pain at this time. . Repositioned in bed.All needs met. Safety, seizure precautions and fall precautions in place. Bed in lwoest position, alarm on, locked. Will continue to monitor.
--- NOTE | 2020-08-14 12:18 | NUR ---
Dietitian Recommendations *Recommend continue NPO for now *Recommend initiate Clinimix or PPN per MD's recommendations if/when medically feasible. Needs per PharmD. *If/when NG tube insertion is feasible, recommend TF Glucerna 1.2 at goal rate of 55 ml/hr to provide 1584 kcal, 79 g protein, 1063 ml free H2O w/ Everardo BID to meet pt's needs. Please see Nutrition Assessment for details. EP,RD
[2020-08-14 12:47] VITALS: BP_SYST 150
--- NOTE | 2020-08-14 14:00 | NUR ---
Notes Patient is sleeping at this time. S/w daughter, Tatyana on the phone. Daughter would like an update from Dr. Benjamin, will endorse to next nurse. No resp distress noted. No signs of pain at this time. Will continue to monitor.
--- NOTE | 2020-08-14 14:06 | NUR ---
Dc Planning review: Awake, chronic vegetative stage, on RA, GT site abscess, GT removed and will wait for GT site healed before reinsert a new one. GI plans to insert NGT in the next couple days , plans for PPN/no order yet. Isolation for MRSA nares.
[2020-08-14] MEDS ORDERED: *PPN PER PHARMACY XX PRN (15:15)
--- NOTE | 2020-08-14 15:48 | NUR ---
CONSULTATION PAGED REASON FOR CONSULTATION:FOR PULLED OUT G-TUBE WAS CONSULT CALLED?Y PERSON WHO WAS NOTIFIED:CALISTA -CONSULTING PHYSICIAN:NENO MARQUIS DAY CAMP UNIT LEADER SPECIALTY:SURGEON DAY CAMP UNIT LEADER PHONE NUMBER:[phone] REQUESTING PHYSICIAN:KRISTOPHER DE LOS SANTOS
--- NOTE | 2020-08-14 16:25 | NUR ---
Notes Patient is awake, alert and oriented x1. NO resp distress noted. Breathing is even and unlabored. No signs of pain at this time. Repositioned with pillows. Patient is noted with soft stool. All needs met at this time. Will continue to monitor.
[2020-08-14 17:13] VITALS: BP_SYST 124
--- NOTE | 2020-08-14 17:30 | NUR ---
Blood Sugar Patients BS was noted at 160 mg/dL. Per sliding scale, adminsitered 2 units of regular insulin, tolerated well. Will continue to monitor.
--- NOTE | 2020-08-14 18:50 | NUR ---
Closing Notes Patient is laying in bed resting at this time. Remains on contact isolation for MRSA of the nares. Alert and oriented x1. No resp distress noted. Breathing is even and unlabored. Patient shows no signs of pain at this time. IV site on left FA, 22 gauge intact at this time. Flushing well, no infiltration or irritation noted. Pt is contracted, elevated feet with pillows. Repositioned in bed. Patient is noted attempting to remove her abdominal dressing. Agitation noted, biting on her gown. Flores catheter draining by gravity. Yellow and clear urine, emptied out 600 cc of clear and yellow urine, some sedimentation noted. All needs met. Safety, seizure precautions and fall precautions in place. Bed in lwoest position, alarm on, locked. Will continue to monitor.
[2020-08-14 20:00] VITALS: BP_SYST 168
--- NOTE | 2020-08-14 20:00 | NUR ---
INITIAL NOTE AT INITIAL ASSESSMENT, PATIENT IS RESTING IN BED, STABLE, NO SIGNS OF RESPIRATORY DISTRESS. PLAN OF CARE FOR THE EVENING IS COMMUNICATED WITH THE PATIENT. PATIENT IS UNABLE TO DEMONSTRATE CORRECT USAGE OF CALL LIGHT AT THIS TIME DUE TO COGNITIVE IMPAIRMENT. PATIENT WILL BE MONITORED CLOSELY WITH FREQUENT ROUNDING. CALL LIGHT IS PLACED WITHIN REACH. BED IS LOCKED, ALARMED, AND AT THE LOWEST LEVEL. FALL, SAFETY, RESPIRATORY, AND ASPIRATION PRECAUTIONS WILL BE TAKEN THROUGHOUT THE SHIFT.
--- NOTE | 2020-08-14 20:30 | NUR ---
DR. VEE ROUNDS DR. VEE IS MAKING ROUND AT THIS TIME. NEW ORDERS GIVEN. ORDERS READ BACK, VERIFIED, AND ENTERED.
[2020-08-14] MEDS: VANCOMYCIN HCL 750 MG in NS 250 ML IV SCH (20:38)
[2020-08-14] MEDS: MUPIROCIN 2% TOPICAL OINTMENT 22 GM NS SCH (20:39)
[2020-08-14] MEDS: ENOXAPARIN SODIUM 40 MG/0.4 ML SYRINGE SUBCUT SCH ×2 (20:39→21:00)
[2020-08-14] MEDS ORDERED: *TPN PER PHARMACY XX PRN (20:45)
--- NOTE | 2020-08-14 21:15 | NUR ---
HIGH HR DR. VEE IS MADE AWARE THAT THE PATIENT'S HR IS TRENDING ABOUT 120'S AT THIS TIME, DR. VEE HAS ORDERED CLONIDINE PATCH 0.3 MG Q7DAYS. ORDER READ BACK, VERIFIED, AND ENTERED.
[2020-08-14] MEDS: hydrALAZINE HCL 20 MG/ML VIAL IVP PRN (21:53)
--- NOTE | 2020-08-14 22:00 | NUR ---
HYGIENE CARE HYGIENE CARE PROVIDED AT THIS TIME, FRESH LINENS PROVIDED. PATIENT TOLERATED WELL. PATIENT IS REPOSITIONED FOR COMFORT. BED IS LOCKED, ALARMED, AND AT THE LOWEST LEVEL.
[2020-08-15] VITALS: BP_SYST 137
--- NOTE | 2020-08-15 | NUR ---
NOTE PATIENT IS RESTING IN BED, STABLE , NO SIGNS OF RESPIRATORY DISTRESS. CALL LIGHT IS WITHIN REACH. BED IS LOCKED, ALARMED, AND AT THE LOWEST LEVEL.
--- NOTE | 2020-08-15 02:00 | NUR ---
NOTE PATIENT IS SLEEPING, STABLE , NO SIGNS OF RESPIRATORY DISTRESS. CALL LIGHT IS WITHIN REACH. BED IS LOCKED, ALARMED, AND AT THE LOWEST LEVEL.
--- NOTE | 2020-08-15 04:00 | NUR ---
NOTE PATIENT IS SLEEPING, STABLE , NO SIGNS OF RESPIRATORY DISTRESS. CALL LIGHT IS WITHIN REACH. BED IS LOCKED, ALARMED, AND AT THE LOWEST LEVEL.
[2020-08-15] MEDS: KCL 20 mEq in D5/0.45NS 1000mL 1,000 ML IV SCH ×2 (05:43→13:08)
[2020-08-15] MEDS ORDERED: cloNIDine HCL 0.1 MG/24 HR PATCH.TDWK TD SCH ×2 (06:00→09:00)
--- NOTE | 2020-08-15 06:00 | NUR ---
CLOSING NOTE PATIENT IS RESTING IN BED, STABLE, NO SIGNS OF RESPIRATORY DISTRESS. CALL LIGHT PLACED WITHIN REACH. BED IS LOCKED, ALARMED, AND AT THE LOWEST LEVEL. FALL, SAFETY, RESPIRATORY, ASPIRATION, ISOLATION, AND SEIZURE PRECAUTIONS HAVE BEEN TAKEN THROUGHOUT THE SHIFT. Addendum: 08/16/20 at 0039 by Almita Mariee RN WILL CONTINUE TO MONITOR CLOSELY UNTIL SHIFT REPORT IS GIVEN AT BEDSIDE TO AM NURSE.
--- NOTE | 2020-08-15 06:10 | NUR ---
COMMUNICATION WITH FAMILY PATIENT'S DAUGHTER COLETTE CALLED FOR CONSENT FOR MIDLINE PLACEMENT FOR PPN NUTRITION; DAUGHTER COLETTE VERBALIZED SHE WANTS TO DISCUSS DECISION WITH HER SISTER AND WILL CALL [facility] BACK WITH AN ANSWER SOON.
[2020-08-15] MEDS: INSULIN REGULAR, HUMAN 100 UNITS/ML, 10 ML VIAL (humuLIN R) SUBCUT PRN (06:44)
--- NOTE | 2020-08-15 06:53 | NUR ---
HIGH ALERT NOTE: (FOR PPN/TPN) Called Dr. VEE back at [phone] identified within the medical roster to verify physician authenticity.
[2020-08-15 07:05] LABS: ALANINE AMINOTRANSFERASE 10 U/L (12-78); ALBUMIN 2.5 g/dL (3.4-4.8); ANION GAP 10 (5-15); ASPARTATE AMINOTRANSFERASE 10 U/L (10-37); CALCIUM 8.7 mg/dL (8.4-11.0); CHLORIDE 105 mmol/L (98-107); CREATININE 0.59 mg/dL (0.55-1.30); GLUCOSE 170 mg/dL (70-99); PHOSPHORUS 3.2 mg/dL (2.7-4.5); POTASSIUM 3.6 mmol/L (3.5-5.1); SODIUM SERUM 139 mmol/L (136-145); TOTAL BILIRUBIN 0.5 mg/dL (0.0-1.0); UREA NITROGEN, BLOOD 20 mg/dL (8-21)
[2020-08-15 07:54] LABS: TRIGLYCERIDES 160 mg/dL (30-150)
[2020-08-15 08:00] VITALS: BP_SYST 155
--- NOTE | 2020-08-15 08:00 | NUR ---
PATIENT RECEIVED. AAO X1. NO SIGN OF DISTRESS OR PAIN NOTED. CALLED ANGELICA MARRERO, FAMILY [phone] TO GET CONSENT FOR MIDLINE. CHARGE NURSE MADE AWARE. ANTIBIOTICS ON GOING, TOLERATING WELL. WILL CONTINUE TO MONITOR.
--- NOTE | 2020-08-15 10:00 | NUR ---
WOUND CARE PERFORMED AT THIS TIME. PATIENT TOLERATED WELL. RECEIVED CALL BACK FOR PATIENT'S DAUGHTER ANGELICA MARRERO FOR MIDLINE CONSENT. CHARGE NURSE, CHARISMA MADE AWARE AND WITNESSED CONSENT. WILL CONTINUE TO MONITOR.
[2020-08-15] MEDS: CEFEPIME 1 GM in D5W 50 ML IV SCH ×2 (10:33→22:03)
[2020-08-15] MEDS: MUPIROCIN 2% TOPICAL OINTMENT 22 GM NS SCH ×2 (10:34→22:04)
[2020-08-15] MEDS: BALSAM PERU/CASTOR OIL 60 GM OINT...G. TP SCH (10:35)
[2020-08-15] MEDS: FLUCONAZOLE 200 mg/ NS 100 ML IV SCH (11:36)
--- NOTE | 2020-08-15 12:00 | NUR ---
BLOOD SUGAR 143. PATIENT IS NPO AT THIS TIME. REPOSITIONED. WILL CONTINUE TO MONITOR.
[2020-08-15 12:16] VITALS: BP_SYST 138
--- NOTE | 2020-08-15 14:00 | NUR ---
WOUND CARE TO GT SITE. LEFT LEG AND SACRUM PERFORMED . PATIENT TOLERATED WELL. IVF ONGOING, PATIENT TOLERATED WELL.
[2020-08-15] MEDS ORDERED: MENTHOL/ZINC OXIDE 113 GM OINT. TP SCH (15:00)
[2020-08-15 16:00] VITALS: BP_SYST 168
--- NOTE | 2020-08-15 16:00 | NUR ---
NGT INSERTED TO RIGHT NARES. PATIENT ON 2 POINT RESTRAINT FOR PULLING ON TUBES. ORDER FROM DR. STANISLAW GOODEN. CHARGE NURSE MADE AWARE.
[2020-08-15] MEDS: VANCOMYCIN HCL 1,000 MG in NS 250 ML IV SCH (16:05)
--- NOTE | 2020-08-15 19:35 | NUR ---
XRAY DONE AND ADVISED TO INSERT NGT FURTHER TO 3CM. DONE. RAY DONE AND OK TO USE.
--- NOTE | 2020-08-15 19:36 | NUR ---
PATIENT PULLED IV OUT AT THIS TIME. ENDORSED TO PM NURSE AND CHARGE NURSE.
--- NOTE | 2020-08-15 19:40 | NUR ---
Dr. Benjamin rounds Dr. Benjamin at bedside to see patient and he spoke with Bria, battery charger conveyor line nurse and gave her orders: do not insert NG-tube, she will be on TPN and will not need restraints.
[2020-08-15 20:00] VITALS: BP_SYST 145
[2020-08-15] MEDS: ENOXAPARIN SODIUM 40 MG/0.4 ML SYRINGE SUBCUT SCH (22:05)
[2020-08-16] MEDS: FAT EMULSIONS 250 ML IV SCH ×2 (00:01→20:37)
[2020-08-16 00:13] VITALS: BP_SYST 144
--- NOTE | 2020-08-16 00:38 | NUR ---
Fingerstick glucose Fingerstick glucose test done w/ result of 140 mg/dL, no coverage due.
--- NOTE | 2020-08-16 00:41 | NUR ---
PIIC nurse PIIC nurse at bedside for insertion of PIIC line.
--- NOTE | 2020-08-16 01:40 | NUR ---
PISHANITA line inserted, X-ray taken X-ray complete and viewed by ELIZABETH Rea PIIC nurse. He reports ok to use line.
--- NOTE | 2020-08-16 02:15 | NUR ---
CLONIDINE PATCH/ COMMUNICATION W/ PHARMACY [facility]ACY [facility] WAS PAGED AT THIS TIME TO CLARIFY CLONIDINE PATCH ORDER. ORDER WAS PLACED MY MD FOR CLONIDINE PATCH 0.3 MG PATCH QWEEKLY. ORDER APPROVED BY PHARMACY WAS CLONIDINE PATCH 0.1 MG QWEEKLY BUT STARTING DOSE TIME DID NOT INDICATE THE MEDICATION SCHEDULED DATE AND TIME. PHARMACY WAS PAGED AT THIS TIME TO CLARIFY IF THIS IS AN ADJUSTED DOSE PER PHARMACY, PHARMACIST [facility] NOTED THAT THE PREVIOUS PHARMACIST THAT APPROVED THE MEDICATION MAY HAVE ACCIDENTALLY MISSED THE DOSE INSTRUCTION OF 0.3 MG. PHARMACIST HAS REQUESTED RN TO PLACE A NEW ORDER, SO SHE IS ABLE TO ADJUST MEDICATION TO THE DOSE MD HAD ORIGINALLY ORDERED.
--- NOTE | 2020-08-16 02:20 | NUR ---
rounds Patient repositioned and turned, IVF and PPN/Lipids infusing well via new PIIC line to NORMA; patient tolerating.
[2020-08-16] MEDS: KCL 20 mEq in D5/0.45NS 1000mL 1,000 ML IV SCH ×2 (04:15→15:40)
--- NOTE | 2020-08-16 04:17 | NUR ---
IVF IVF bag empty and hung new bag of IVF and infusing as ordered at 75 ml/hr.
--- NOTE | 2020-08-16 05:40 | NUR ---
Wound care Wound care provide to sacral, medial leg, and abdomen; updated wound care notes in [facility] charting. Patient tolerated.
[2020-08-16] MEDS: INSULIN REGULAR, HUMAN 100 UNITS/ML, 10 ML VIAL (humuLIN R) SUBCUT PRN ×2 (06:05→11:56)
--- NOTE | 2020-08-16 06:50 | NUR ---
Closing note Patient resting in comfortable position, no s/sx of distress, no SOB noted. IVF, TPN and Lipids infusing well via PIIC to NORMA. Resting on GIFTY mattress, clayton catheter bag is draining to gravity-no dependent loops. Fingerstick glucose test done w/ result of 170 mg/dL and covered with insulin per sliding scale. Safety, isolation, and aspiration precautions maintained. Needs met throughout shift, will endorse care.
[2020-08-16 07:33] LABS: ALANINE AMINOTRANSFERASE 17 U/L (12-78); ALBUMIN 2.4 g/dL (3.4-4.8); ANION GAP 7 (5-15); ASPARTATE AMINOTRANSFERASE 14 U/L (10-37); CALCIUM 9.1 mg/dL (8.4-11.0); CHLORIDE 103 mmol/L (98-107); CREATININE 0.73 mg/dL (0.55-1.30); GLUCOSE 188 mg/dL (70-99); PHOSPHORUS 2.6 mg/dL (2.7-4.5); POTASSIUM 3.6 mmol/L (3.5-5.1); SODIUM SERUM 134 mmol/L (136-145); TOTAL BILIRUBIN 0.3 mg/dL (0.0-1.0); UREA NITROGEN, BLOOD 10 mg/dL (8-21)
[2020-08-16 08:00] VITALS: BP_SYST 144
--- NOTE | 2020-08-16 08:00 | NUR ---
Opening note Patient resting in bed alert and confused. IV infusing left bicep PICC TPN at44ml/hr, lipids at 5ml/hl and IVF d5 1/2+ 20mEq k+ at 75ml/hr via infusion pump. Flores to gravity. Bed in low, call light in reach, side rails up for safety. Will continue to monitor.
[2020-08-16] MEDS ORDERED: *TPN PER PHARMACY XX PRN (08:30)
[2020-08-16] MEDS ORDERED: cloNIDine HCL 0.3 MG/24 HR PATCH.TDWK TD SCH (09:00)
[2020-08-16] MEDS ORDERED: MENTHOL/ZINC OXIDE 113 GM OINT. TP SCH (09:00)
[2020-08-16] MEDS: CEFEPIME 1 GM in D5W 50 ML IV SCH ×2 (09:42→20:34)
[2020-08-16] MEDS: FLUCONAZOLE 200 mg/ NS 100 ML IV SCH (09:50)
[2020-08-16] MEDS: cloNIDine HCL 0.3 MG/24 HR PATCH.TDWK TD SCH (09:50)
[2020-08-16] MEDS: MUPIROCIN 2% TOPICAL OINTMENT 22 GM NS SCH ×2 (09:57→21:06)
[2020-08-16] MEDS: BALSAM PERU/CASTOR OIL 60 GM OINT...G. TP SCH (09:57)
[2020-08-16 12:50] VITALS: BP_SYST 160
[2020-08-16] MEDS: VANCOMYCIN HCL 1,000 MG in NS 250 ML IV SCH (15:42)
[2020-08-16 16:00] VITALS: BP_SYST 138
--- NOTE | 2020-08-16 18:52 | NUR ---
Closing note Patient resting in bed alert and confused. IV infusing left bicep PICC TPN at44ml/hr, lipids at 5ml/hl and IVF d5 1/2+ 20mEq k+ at 75ml/hr via infusion pump. Flores to gravity. Bed in low, call light in reach, side rails up for safety. Will endorse to next shift.
--- NOTE | 2020-08-16 19:30 | NUR ---
Opening Notes Patient awake AOx1, resting in bed on GIFTY mattress, no distress, no SOB, non labored breathing on room air. IVF, TPN and Lipids infusing via PIIC to NORMA and it is patent no infiltration noted. No facial grimacing or signs of pain/discomfort. Flores catheter to gravity. Bed is locked in lowest position, side rails up 3x, bed alarm on, and call light w/in reach. Updated board.
[2020-08-16 20:00] VITALS: BP_SYST 164
[2020-08-16] MEDS: hydrALAZINE HCL 20 MG/ML VIAL IVP PRN (20:15)
--- NOTE | 2020-08-16 20:20 | NUR ---
Elevated B/P B/P 164/106, HR 106; administered Hydralazine IVP as ordered will continue to monitor.
--- NOTE | 2020-08-16 20:26 | NUR ---
Dr. Sourav Benjamin at bedside making rounds
[2020-08-16] MEDS: KCL 20 mEq in 0.45% NS 1000 mL 1,000 ML IV SCH (20:35)
[2020-08-16] MEDS: ENOXAPARIN SODIUM 40 MG/0.4 ML SYRINGE SUBCUT SCH (20:40)
[2020-08-16] MEDS: TPN PERIPHERAL IV SCH ×20 (20:51)
[2020-08-16] MEDS: SODIUM ACETATE IV SCH ×20 (20:51)
[2020-08-16] MEDS: NA PHOS IV SCH ×20 (20:51)
[2020-08-16] MEDS: [UNRECOGNIZED DRUG - OTHER] IV SCH ×20 (20:51)
[2020-08-16] MEDS ORDERED: TPN CENTRAL IV SCH ×10 (21:00)
[2020-08-16] MEDS ORDERED: POTASSIUM CHLORIDE IV SCH ×10 (21:00)
[2020-08-16] MEDS ORDERED: [UNRECOGNIZED DRUG - OTHER] IV SCH ×10 (21:00)
[2020-08-16] MEDS ORDERED: SODIUM ACETATE IV SCH ×10 (21:00)
--- NOTE | 2020-08-16 21:11 | NUR ---
TPN, meds Hung new bag of TPN, lipids and new tubing; infusing as ordered and tolerated also gave due meds.
--- NOTE | 2020-08-16 22:05 | NUR ---
Patient care Patient had BM, she was provided with marsha-care, new pad and linen. She was repositioned and turned. Safety, aspiration, and isolation precautions maintained. Will continue to monitor.
--- NOTE | 2020-08-17 00:30 | NUR ---
Fingerstick glucose Fingerstick glucose result of 217 mg/dL and 4U insulin given per sliding scale. VSS, she was repositioned and turned. TPN and IVF fluids infusing well and tolerating.
[2020-08-17] MEDS: INSULIN REGULAR, HUMAN 100 UNITS/ML, 10 ML VIAL (humuLIN R) SUBCUT PRN ×4 (00:35→18:12)
[2020-08-17 00:45] VITALS: BP_SYST 105
--- NOTE | 2020-08-17 02:05 | NUR ---
Resting Patient resting in bed, no distress and non labored breathing. She is awake and constantly keeps a finger/thumb or gown close to her mouth; when removed she immediately returns it; small cotton pieces and any choking hazards are kept away from reach.
--- NOTE | 2020-08-17 04:35 | NUR ---
Wound care Wound care provide to sacral, medial leg, and abdomen; updated wound care notes in [facility] charting. Patient tolerated.
--- NOTE | 2020-08-17 06:56 | NUR ---
Closing note Patient resting in comfortable position, no s/sx of distress, no SOB noted. IVF, TPN and Lipids infusing well via PIIC to NORMA. Resting on GIFTY mattress, clayton catheter bag is draining to gravity-no dependent loops. Fingerstick glucose test done w/ result of 163 mg/dL and covered with 2 units insulin per sliding scale. Safety, isolation, and aspiration precautions maintained. Needs met throughout shift, will endorse care.
[2020-08-17 07:15] LABS: ALANINE AMINOTRANSFERASE 15 U/L (12-78); ALBUMIN 2.3 g/dL (3.4-4.8); ANION GAP 9 (5-15); ASPARTATE AMINOTRANSFERASE 12 U/L (10-37); CALCIUM 8.8 mg/dL (8.4-11.0); CHLORIDE 106 mmol/L (98-107); CREATININE 0.58 mg/dL (0.55-1.30); GLUCOSE 155 mg/dL (70-99); PHOSPHORUS 3.2 mg/dL (2.7-4.5); POTASSIUM 3.5 mmol/L (3.5-5.1); SODIUM SERUM 138 mmol/L (136-145); TOTAL BILIRUBIN 0.3 mg/dL (0.0-1.0); UREA NITROGEN, BLOOD 13 mg/dL (8-21)
[2020-08-17 08:00] VITALS: BP_SYST 106; BP_SYST 149
--- NOTE | 2020-08-17 08:00 | NUR ---
Opening note Received patient awake alert confused. Patient appears to be anxious attempted to provide reassurance. On room air breathing even and unlabored no sign of distress. IV in fusing left bicep PICC 1/2ns +20mEq k+ ay 75ml/hr. Lipids at 5ml/hr and TPN at 44ml/hr via infusion pump. Flores draining yellow colored urine securement device detached, will apply when rounding. Vital signs WNL. Dressing to abdomen C/D/I. Bed in low, call light in reach, side rails up for safety. Will continue to monitor
[2020-08-17] MEDS: FLUCONAZOLE 200 mg/ NS 100 ML IV SCH (09:24)
[2020-08-17] MEDS: CEFEPIME 1 GM in D5W 50 ML IV SCH ×2 (09:24→20:31)
[2020-08-17] MEDS: KCL 20 mEq in 0.45% NS 1000 mL 1,000 ML IV SCH (09:35)
[2020-08-17] MEDS: MUPIROCIN 2% TOPICAL OINTMENT 22 GM NS SCH ×2 (09:36→20:31)
[2020-08-17] MEDS: BALSAM PERU/CASTOR OIL 60 GM OINT...G. TP SCH (09:36)
--- NOTE | 2020-08-17 10:21 | NUR ---
Discontinued lipid infusion per pharmacy order
--- NOTE | 2020-08-17 12:11 | NUR ---
Discharge Planning: DCP faxed pt to [facility] (f [phone] p [phone]) DCP to follow up
[2020-08-17 12:50] VITALS: BP_SYST 122
--- NOTE | 2020-08-17 13:42 | NUR ---
Nutrition F/U Admitting Diagnosis: Cellulitis of Abdominal Wall Medical History Comment: PMH: Dementia, DM, Dysphagia, G-tube feeding Pt also found w/ G-tube site w/ leukocytosis, severe malnutrition per MD note. 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 Per EMR review, pt in NPO plus TPN support. Pt has been on NGT feeding but has since pulled out her NG tube twice and MD does not rec another GT placement d/t cellulitic skin overlying an abscess in old GT site. MD wants to wait until the skin is healed before GT re-insertion. RD s/w pharmD Julius earlier 0953am who agreed ww/ RD rec to stop lipids because upon chart review, RD noted TG on 08/15 [address] RD also rec to adjust concentration for dextrose and amino acid, to which pharmD also concurred. An increase in protein needs is warranted for Stage IV PU per hedis specialist note Current Diet Order/Nutrition Support: NPO + D50% AA 8.5% at 42ml/hr, IL 20% at 5ml/hr via central line Pertinent Medications: Vancomycin, SSI, Lovenox Pertinent Labs 08/17 Na 138 WNL, K 3.5 WNL, BUN 13 WNL, Cr 0.58 WNL, BG 155 H, POC BG 163H, 08/15 TG 160H Skin Integrity Comment: Derian scale 14. Per Asparagus Cutter note 08/13: 1. Left Medial Heel: Unstageable pressure ulcer, present on admission 90% light yellow tissue, 10% brown slough. No odor, scant yellow drainage. Periwound intact. 2. Left Lateral Foot Near Fifth Metatarsal Head: Stage IV pressure ulcer, present on admission. 3. Sacral-Coccygeal Area: Stage IV pressure ulcer, present on admission. 4. Abdomen: G-tube exit site (recent accidental dislodgment) with possible abscess or fistula, present on admission. Open area measures 0.7 cm x 1.4 cm x 6.6 cm. Ludy-wound has yellow tissue. Surrounding tissue has erythema. Mild odor, copious amounts of black drainage (possible gastric contents) draining from site with small amount of blood. Current % PO NPO NEW Estimated Energy Expenditure (kcals/day) 9591-8671 kcal/day (30-35 kcal/kg IBW for wound healing) NEW Estimated Protein Required (g/day) 65-82 g pro/day (1.2-1.5 g pro/kg IBW for wound healing) NEW Estimated Fluid Required (l/day) 1.6-1.9L/day (1ml/kcal/day for maintenance) Problem/Etiology/Signs/Symptoms Inadequate protein energy intake r/t increased nutritional demands for healing AEB NPO and pt w/ Stage 4 pressure ulcer on Sacrum and wound on G-tube site. (*improved, now on TPN) Altered nutrition related lab values r/t endocrine dysfunction AEB DM and elevated BG and POC BG lab values. (*ongoing) Expected Outcomes/Goals -Will monitor initiation and tolerance of nutrtition support w/ goal of pt meeting at least 75% of estimated nutrtitional needs, labs, trending WNL, normal GI function, skin integrity, and weight maintenance. Dietitian Recommendations *Recommend continue NPO for now *Recommend D40% AA10% at 80ml/hr, no lipid via central line. Provides: 1690 kcal, 96gm protein and 1920ml fluids daily. Meets: 89% of upper end of estimated calorie needs and 117% of upper end of estimated protein needs. Follow Up High Risk: F/U in 2-3days
--- NOTE | 2020-08-17 13:45 | NUR ---
Dr Boyd in to see patient no new orders received
--- NOTE | 2020-08-17 13:52 | NUR ---
Dietitian Recommendations *Recommend continue NPO for now *Recommend D40% AA10% at 80ml/hr, no lipid via central line. Provides: 1690 kcal, 96gm protein and 1920ml fluids daily. Meets: 89% of upper end of estimated calorie needs and 117% of upper end of estimated protein needs. RD s/w pharm Ekaterina Madrid 0907am for RD rec. Please see Nutrition F/U note for details. WIL PECK
[2020-08-17 16:42] VITALS: BP_SYST 139
[2020-08-17] MEDS: VANCOMYCIN HCL 1,000 MG in NS 250 ML IV SCH (16:54)
--- NOTE | 2020-08-17 18:40 | NUR ---
Closing note Patient resting in bed with eyes closed, breathing even and unlabored no sign of distress. IV infusing left bicep TPN at 44ml/hr and 1/2nf +20mEq k+ at 75ml/hr. Flores emptied and attached to bed rail. Bed in low, call light in reach, side rails up for safety. Will endorse to next shift
--- NOTE | 2020-08-17 19:25 | NUR ---
Opening Notes Patient awake AOx1, resting in bed on GIFTY mattress, no distress, no SOB, non labored breathing on room air. IVF and TPN infusing via PIIC to NORMA and it is patent no infiltration noted. No facial grimacing or signs of pain/discomfort. Flores catheter to gravity. Bed is locked in lowest position, side rails up 3x, bed alarm on, and call light w/in reach. Updated board.
[2020-08-17] MEDS: ENOXAPARIN SODIUM 40 MG/0.4 ML SYRINGE SUBCUT SCH (20:33)
[2020-08-17] MEDS ORDERED: POTASSIUM CHLORIDE IV SCH ×10 (21:00)
[2020-08-17] MEDS ORDERED: TPN CENTRAL IV SCH ×10 (21:00)
[2020-08-17] MEDS ORDERED: SODIUM ACETATE IV SCH ×10 (21:00)
[2020-08-17] MEDS ORDERED: [UNRECOGNIZED DRUG - OTHER] IV SCH ×10 (21:00)
--- NOTE | 2020-08-17 21:03 | NUR ---
Meds Due meds given and hung new bag of TPN w/new tubing; infusing as ordered and tolering.
[2020-08-17 23:38] VITALS: BP_SYST 149
[2020-08-18] MEDS: KCL 20 mEq in 0.45% NS 1000 mL 1,000 ML IV SCH ×2 (00:20→16:27)
[2020-08-18] MEDS: INSULIN REGULAR, HUMAN 100 UNITS/ML, 10 ML VIAL (humuLIN R) SUBCUT PRN ×4 (00:29→16:34)
--- NOTE | 2020-08-18 00:30 | NUR ---
Fingerstick glucose Fingerstick glucose test done w/ result of 191 mg/dL and 2U insulin given per sliding scale. Hung new bag of IVF and infusing as ordered at 75 ml/hr. She was repositioned and turned. Safety, isolation and aspiration precautions maintained.
[2020-08-18 01:54] VITALS: BP_SYST 149
--- NOTE | 2020-08-18 02:35 | NUR ---
Resting Patient resting in bed, no distress and non labored breathing. She is presently calm and resting w/eyes closed.
--- NOTE | 2020-08-18 04:30 | NUR ---
Wound care Late entry d/t patient care Wound care provide to sacral, left heel, and abdomen; updated wound care notes in [facility] charting. Patient tolerated.
[2020-08-18 07:03] LABS: ANION GAP 7 (5-15); CALCIUM 8.9 mg/dL (8.4-11.0); CHLORIDE 105 mmol/L (98-107); CREATININE 0.56 mg/dL (0.55-1.30); GLUCOSE 187 mg/dL (70-99); PHOSPHORUS 3.2 mg/dL (2.7-4.5); POTASSIUM 4.1 mmol/L (3.5-5.1); SODIUM SERUM 137 mmol/L (136-145); UREA NITROGEN, BLOOD 14 mg/dL (8-21)
--- NOTE | 2020-08-18 07:55 | NUR ---
Note Dr Webster on the floor to assess pt at this time.
[2020-08-18 08:00] VITALS: BP_SYST 147
--- NOTE | 2020-08-18 08:00 | NUR ---
Note Pt resting in bed with NORMA PICC intact and patent at this time infusing IVF's and TPN well. Abdominal dressing and sacral dressing CDI at this time. No SOB/resp distress or pain/discomfort noted at this time. No needs noted at this time. Pt next to nurses' station for close observation for needs and care. Call light within reach.
[2020-08-18] MEDS: BALSAM PERU/CASTOR OIL 60 GM OINT...G. TP SCH (09:04)
[2020-08-18] MEDS: MUPIROCIN 2% TOPICAL OINTMENT 22 GM NS SCH ×2 (09:04→22:28)
[2020-08-18] MEDS: CEFEPIME 1 GM in D5W 50 ML IV SCH (09:22)
[2020-08-18] MEDS ORDERED: [UNRECOGNIZED DRUG - OTHER] IV SCH ×30 (10:00→21:00)
[2020-08-18] MEDS ORDERED: POTASSIUM CHLORIDE IV SCH ×30 (10:00→21:00)
[2020-08-18] MEDS ORDERED: NA PHOS IV SCH ×30 (10:00→21:00)
[2020-08-18] MEDS ORDERED: TPN CENTRAL IV SCH ×30 (10:00→21:00)
[2020-08-18] MEDS ORDERED: SODIUM ACETATE IV SCH ×30 (10:00→21:00)
[2020-08-18] MEDS: FLUCONAZOLE 200 mg/ NS 100 ML IV SCH (10:13)
--- NOTE | 2020-08-18 10:35 | NUR ---
Note Pt was seen and assessed by Dr Boyd at this time. No needs noted. Flores catheter intact and draining well all shift. Call light within reach.
[2020-08-18] MEDS: VANCOMYCIN HCL 750 MG in NS 250 ML IV SCH (11:59)
[2020-08-18 12:16] VITALS: BP_SYST 132
--- NOTE | 2020-08-18 13:10 | NUR ---
Note Pt resting in bed with IVF's and TPN infusing well. No needs noted. Call light within reach.
--- NOTE | 2020-08-18 15:20 | NUR ---
Note Pt has been biting her gown all shift, will not allow staff to get gown out of her hand or mouth all shift. Pt resists any movement of her arms or feet to do hygiene care or taking vital signs. No needs noted at this time. Call light within reach.
--- NOTE | 2020-08-18 15:40 | NUR ---
Left lateral foot dressing done at this time. Pt was also given hygiene care and partial bed bath. Pt kept resisting attempts to turn her and give hygiene care.
--- NOTE | 2020-08-18 15:56 | NUR ---
WOUND EVALUATION: Patient received in a Thurmond Bed with an IsoFlex GIFTY mattress with low air loss therapy, awake, confused, non-responsive to verbal commands, resists assessment by pulling away. Patient is unable to turn in bed independently. Derian Score is a 13. Past Medical History: Diabetes Mellitus, Dementia, history of influenza A and B, Dementia, contractures all extremities. Admitted for accidental G-Tube dislodgement. Microbiology: MRSA Screen results positive. Blood Culture results x 2 negative. Abdominal abscess culture results positive for Klebsiella Pneumoniae and Enterococcus Faecalis. Intrinsic factors that delay wound healing: Diabetes Mellitus, Hypoalbuminemia, Hyperglycemia. Extrinsic factors that delay wound healing: Immobility. Wound Assessment: 1. Left Medial Heel: Unstageable pressure ulcer, present on admission. Wound care performed by jacquard loom card changer nurse this morning. Dressing not removed for assessment secondary to doing so would decrease wound temperature and retard wound healing rate. Recommend continue: Cleanse wound with normal saline. Apply moisture barrier cream to periwound. Apply Venelex ointment to wound bed. Cover with foam dressing. Perform wound care daily, and as needed for dressing soiling or dislodgment. Offload site at all times. Offload, elevate and float bilateral heels with pillows (place one pillow between knees and ankles; place one pillow folded in half underneath leg that is resting on bed so that it floats). DO NOT ALLOW HEEL TO TOUCH BED OR OTHER SURFACES AT ANY TIME. HEEL MUST FLOAT FREELY. 2. Left Lateral Foot Near Fifth Metatarsal Head: Stage IV pressure ulcer, present on admission. Wound care performed by day shift nurse earlier today. Dressing not removed for assessment secondary to doing so would decrease wound temperature and retard wound healing rate. Recommend continue: Cleanse wound with normal saline. Apply moisture barrier cream to periwound. Apply Venelex ointment to wound bed. Cover with foam dressing. Perform wound care daily, and as needed for dressing soiling or dislodgment. Offload site at all times. Offload, elevate and float bilateral heels with pillows (place one pillow between knees and ankles; place one pillow folded in half underneath leg that is resting on bed so that it floats). DO NOT ALLOW HEEL TO TOUCH BED OR OTHER SURFACES AT ANY TIME. HEEL MUST FLOAT FREELY. 3. Sacral-Coccygeal Area: Stage IV pressure ulcer, present on admission. Wound care performed by jacquard loom card changer nurse this morning. Dressing not removed for assessment secondary to doing so would decrease wound temperature and retard wound healing rate. Recommend continue: Cleanse wound with normal saline. Apply moisture barrier cream to periwound. Apply Venelex ointment to wound bed. Pack wound with 1/4 inch iodoform packing strip. Cover with Sacral foam dressing. Perform wound care daily, and as needed for dressing soiling or dislodgment. Offload site at all times. 4. Abdomen: G-tube exit site (recent accidental dislodgment) with possible abscess or fistula, present on admission. Wound care performed by jacquard loom card changer nurse this morning. Dressing not removed for assessment secondary to doing so would decrease wound temperature and retard wound healing rate. Recommend continue: Cleanse wound with normal saline. Apply moisture barrier cream to periwound and surrounding erythematous tissue. Cover with alginate dressing, then ABD pad. Secure with paper tape. Perform wound care daily, and as needed for dressing soiling or dislodgment. Also recommend continue: Reposition patient side to side only every 2 hours with pillow support and off-load pressure areas with pillows for pressure re-distribution. Place pillows underneath pelvis and thigh to float area. Should be able to slide hand freely underneath pelvis. DO NOT PLACE PATIENT FLAT ON BACK EVER. Offload, elevate and float bilateral heels with pillows (place one pillow between knees and ankles; place one pillow folded in half underneath leg that is resting on bed so that it floats). Perform skin care and monitor skin integrity Q shift. Use moisture barrier cream on buttocks and other moisture susceptible areas QID and as needed for soiling. Maintain patient on a low air-loss mattress. Dr. Benjamin ordered a GI consult (Arley) and a surgical consult (Cameron Boyd).
[2020-08-18 16:18] VITALS: BP_SYST 159
--- NOTE | 2020-08-18 18:45 | NUR ---
Note Pt resting in bed with TPN and IVF's infusing well through NORMA midline at this time. No SOB/resp distress or pain/discomfort was noted. Pt was checked on q1' and PRN all shift for needs and care. Pt was maintained with safety and isolation precautions all shift (for MRSA in nares). Abdominal and sacral dressings intact and CDI at this time. Pt continues to curl up her arms and legs to chest. Pt bitting her gown and sheet throughout the shift. No needs noted at this time. Call light within reach. Flores catheter intact and draining.
[2020-08-18 20:00] VITALS: BP_SYST 147
[2020-08-18] MEDS: ENOXAPARIN SODIUM 40 MG/0.4 ML SYRINGE SUBCUT SCH (22:22)
[2020-08-18] MEDS: cefTRIAXone 1 GM in D5W 50 ML IV SCH (22:22)
[2020-08-19] VITALS: BP_SYST 149
[2020-08-19] MEDS: VANCOMYCIN HCL 750 MG in NS 250 ML IV SCH ×3 (00:48→23:56)
[2020-08-19] MEDS: INSULIN REGULAR, HUMAN 100 UNITS/ML, 10 ML VIAL (humuLIN R) SUBCUT PRN ×4 (00:51→16:40)
[2020-08-19] MEDS: KCL 20 mEq in 0.45% NS 1000 mL 1,000 ML IV SCH (06:09)
[2020-08-19 07:44] LABS: ANION GAP 8 (5-15); CHLORIDE 103 mmol/L (98-107); CREATININE 0.59 mg/dL (0.55-1.30); GLUCOSE 208 mg/dL (70-99); PHOSPHORUS 3.1 mg/dL (2.7-4.5); POTASSIUM 4.1 mmol/L (3.5-5.1); SODIUM SERUM 137 mmol/L (136-145); UREA NITROGEN, BLOOD 14 mg/dL (8-21)
[2020-08-19 07:56] VITALS: BP_SYST 148
--- NOTE | 2020-08-19 08:00 | NUR ---
Note Pt resting in bed with left PICC in place, which is intact and patent running IVF's and TPN at this time. Pt's abdominal, sacral and left foot dressings are all CDI at this time. Pt has no needs noted at this time. Pt is isolation precautions for MRSA in nares. Pt next to nurses' station for close observation for needs and care. Call light within reach.
[2020-08-19] MEDS: BALSAM PERU/CASTOR OIL 60 GM OINT...G. TP SCH (08:22)
[2020-08-19] MEDS: MUPIROCIN 2% TOPICAL OINTMENT 22 GM NS SCH (08:24)
--- NOTE | 2020-08-19 09:00 | NUR ---
Note 0745am - Dr Webster on the floor to assess pt. 0855am - Dr Boyd on the floor to assess pt.
[2020-08-19] MEDS: FLUCONAZOLE 200 mg/ NS 100 ML IV SCH (10:37)
--- NOTE | 2020-08-19 11:45 | NUR ---
DC Planning: Discussed dcp with dr. Reyna, dr. Burnhamium: planning for PEG placement per dr. Boyd. He will do the procedure once received the signed consent.
[2020-08-19 12:24] VITALS: BP_SYST 159
--- NOTE | 2020-08-19 15:35 | NUR ---
Note Dr Boyd called at 1137am and 1417, stated he spoke with Dr Benjamin about Placement of GT and EGD. Pt's contacts listed on face sheet called 1) Ebony Lima at 1155am, no answer, message left for call back. 2) Tatyana Michelle at [phone], no answer, message left for call back. Informed Dr Boyd that we were still waiting for call back from 2 contacts for consent of surgeries ([id number]). Pt resting in bed. No needs noted at this time. Call light within reach.
[2020-08-19 16:09] VITALS: BP_SYST 141
--- NOTE | 2020-08-19 19:00 | NUR ---
Note Pt's daughter Celeste called and had questions about GT placement and wanted to speak to Dr Boyd, Dr Boyd was called and message was given. Dr Boyd was given daughter's phone number to call her. Pt resting in bed. NORMA PICC intact and patent infusing IVF's and TPN. Flores catheter intact and draining. Dressings on abdomen, sacral and left foot CDI at this time. Pt was maintained with safety precautions all shift. Pt was checked on q1' and PRN all shift for needs and care. Call light within reach. Pt next to nurses' station for close observation for needs and care.
--- NOTE | 2020-08-19 19:20 | NUR ---
Late Entry due to Patient Care Report was received from day shift nurse. Pt is fully awake, but confused and disoriented. Skin is warm and dry to touch. No signs or symptoms of hypoglycemia or hyperglycemia noted. Pt is on room air and no respiratory distress noted. Abdominal, Sacral, Left Heel and Left Foot dressings are dry and intact. TPN and IVF of 1/2NS + 20meq KCL are infusing well via NORMA PICC with PICC dressing dry and intact. Flores Cath to gravity drainage noted with yellowish urine. Fall, Contact Isolation and Safety precautions are in place. Bed alarm is on and bed is in the lowest/locked positions. Pt's room is across from the Nurses' Station.
[2020-08-19 20:00] VITALS: BP_SYST 159
[2020-08-19] MEDS ORDERED: TPN CENTRAL IV SCH ×10 (21:00)
[2020-08-19] MEDS ORDERED: SODIUM ACETATE IV SCH ×10 (21:00)
[2020-08-19] MEDS ORDERED: NA PHOS IV SCH ×10 (21:00)
[2020-08-19] MEDS ORDERED: POTASSIUM CHLORIDE IV SCH ×10 (21:00)
[2020-08-19] MEDS ORDERED: [UNRECOGNIZED DRUG - OTHER] IV SCH ×10 (21:00)
--- NOTE | 2020-08-19 21:30 | NUR ---
Pt remains awake, confused and disoriented. TPN and IVF are infusing well.
[2020-08-19] MEDS: cefTRIAXone 1 GM in D5W 50 ML IV SCH (22:07)
[2020-08-19] MEDS: ENOXAPARIN SODIUM 40 MG/0.4 ML SYRINGE SUBCUT SCH (22:07)
[2020-08-20] MEDS: INSULIN REGULAR, HUMAN 100 UNITS/ML, 10 ML VIAL (humuLIN R) SUBCUT PRN ×4 (00:02→18:27)
--- NOTE | 2020-08-20 00:02 | NUR ---
Accucheck 236 and skin remains warm and dry to touch. Regular Insulin 4 units given SQ. TPN and IVF are infusing well.
[2020-08-20] MEDS: KCL 20 mEq in 0.45% NS 1000 mL 1,000 ML IV SCH ×3 (00:04→16:12)
[2020-08-20 01:16] VITALS: BP_SYST 144
--- NOTE | 2020-08-20 02:45 | NUR ---
Pt is sleeping comfortably in bed. TPN and IVF are infusing well in NORMA. Bed alarm is on and bed is in the lowest/locked positions.
--- NOTE | 2020-08-20 05:46 | NUR ---
Accucheck 244 and skin remains warm and dry to touch. Regular Insulin 4 units given SQ. TPN and IVF are infusing well.
[2020-08-20 06:50] LABS: ANION GAP 8 (5-15); CALCIUM 9.1 mg/dL (8.4-11.0); CHLORIDE 101 mmol/L (98-107); GLUCOSE 251 mg/dL (70-99); PHOSPHORUS 2.9 mg/dL (2.7-4.5); SODIUM SERUM 134 mmol/L (136-145); UREA NITROGEN, BLOOD 16 mg/dL (8-21)
--- NOTE | 2020-08-20 06:55 | NUR ---
Pt is awake and not in any distress. TPN and IVF are infusing well via NORMA PICC. Fall, Safety and Contact Isolation precautions are in place. Will endorse to day shift nurse.
[2020-08-20 08:00] VITALS: BP_SYST 154
--- NOTE | 2020-08-20 08:00 | NUR ---
Opening Note patient resting in bed on air mattress, a/o x 1, reoriented patient to place/time/event, no signs of distress noted, respirations even and unlabored on room air, IV line patent and infusing well, bed locked and at lowest position, fall/aspiration precautions put in place, call light within reach, will monitor patient for any changes.
--- NOTE | 2020-08-20 09:30 | NUR ---
Pharmacy call called pharmacy to request medication for patient ordered per MD.
[2020-08-20] MEDS: FLUCONAZOLE 200 mg/ NS 100 ML IV SCH (11:02)
--- NOTE | 2020-08-20 11:03 | NUR ---
RN Rounds/Medication patient laying in bed resting, administered medication ordered per MD, patient tolerated well, will continue to monitor patient for any changes, safety measures maintained.
[2020-08-20 12:01] VITALS: BP_SYST 140
--- NOTE | 2020-08-20 12:37 | NUR ---
Follow up for Dr. Boyd spoke with Antonia from [facility] regarding Dr. Boyd speaking to patient's family about consent for surgery.
--- NOTE | 2020-08-20 14:06 | NUR ---
Nutrition F/U Admitting Diagnosis: Cellulitis of Abdominal Wall Medical History Comment: PMH: Dementia, DM, Dysphagia, G-tube feeding Pt also found w/ G-tube site w/ leukocytosis, severe malnutrition per MD note. 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 Per EMR review, pt in NPO plus TPN support. Per Bed Huddle this morning, pt is planned for a G-tube placement this afternoon before discharging back to her SN[facility]. She continues her TPN at this time which provides 1478 calories and 84g of protein daily, meeting 90% of lower end of calories and 102% of upper end of protein estimated needs. Intralipids have been discontinued d/t elevated triglycerides. RD to recommend Glucerna 1.2 at 55cc/hr once G-tube has been placed. This will provide 1584kcal, 79g of protein, and 1063ml of free H20 daily, which meets 97% of lower end of calorie and 96% of upper end protein estimated needs. Current Diet Order/Nutrition Support: NPO + D40% AA10.0% at 70ml/hr via central line Pertinent Medications: Vancomycin, SSI, Lovenox Pertinent Labs 08/20 Na 134 L, K 4.0 WNL, BUN 16 WNL, Cr 0.60 WNL, BG 251 H, POC BG 163H, 08/15 TG 160H Skin Integrity Comment: Derian scale 14. Per Film Technician note 08/13: 1. Left Medial Heel: Unstageable pressure ulcer, present on admission 90% light yellow tissue, 10% brown slough. No odor, scant yellow drainage. Periwound intact. 2. Left Lateral Foot Near Fifth Metatarsal Head: Stage IV pressure ulcer, present on admission. 3. Sacral-Coccygeal Area: Stage IV pressure ulcer, present on admission. 4. Abdomen: G-tube exit site (recent accidental dislodgment) with possible abscess or fistula, present on admission. Open area measures 0.7 cm x 1.4 cm x 6.6 cm. Ludy-wound has yellow tissue. Surrounding tissue has erythema. Mild odor, copious amounts of black drainage (possible gastric contents) draining from site with small amount of blood. Current % PO NPO NEW Estimated Energy Expenditure (kcals/day) 9991-8883 kcal/day (30-35 kcal/kg IBW for wound healing) NEW Estimated Protein Required (g/day) 65-82 g pro/day (1.2-1.5 g pro/kg IBW for wound healing) NEW Estimated Fluid Required (l/day) 1.6-1.9L/day (1ml/kcal/day for maintenance) Problem/Etiology/Signs/Symptoms Inadequate protein energy intake r/t increased nutritional demands for healing AEB NPO and pt w/ Stage 4 pressure ulcer on Sacrum and wound on G-tube site. (*improved, now on TPN) Altered nutrition related lab values r/t endocrine dysfunction AEB DM and elevated BG and POC BG lab values. (*ongoing) Expected Outcomes/Goals -Will monitor initiation and tolerance of nutrtition support w/ goal of pt meeting at least 75% of estimated nutrtitional needs, labs, trending WNL, normal GI function, skin integrity, and weight maintenance. Dietitian Recommendations *Continue to D40% AA10% at 80ml/hr (goal), no lipid via central line. *Once G-tube has been placed, recommend Glucerna 1.2 at 55/hr - Provides: 1584kcal, 79g of protein, and 1063ml of free H20 daily - Meets 97% of lower end of calorie and 96% of upper end protein estimated needs. Follow Up High Risk: F/U in 2-3days
--- NOTE | 2020-08-20 14:08 | NUR ---
Dietitian Recommendations *Continue to D40% AA10% at 80ml/hr (goal), no lipid via central line. *Once G-tube has been placed, recommend Glucerna 1.2 at 55/hr (goal) - Provides: 1584kcal, 79g of protein, and 1063ml of free H20 daily - Meets 97% of lower end of calorie and 96% of upper end protein estimated needs. Please see Nutrition F/U for further details. LT, RD
[2020-08-20] MEDS ORDERED: PROPOFOL 200MG/ 20ML VIAL (DIPRIVAN) IV ONE (14:10)
[2020-08-20] MEDS ORDERED: NS IRRIG SOLN 1000 ML IR ONE (14:10)
[2020-08-20] MEDS ORDERED: LR 1,000 ML IV.SOLN IV ONE (14:10)
--- NOTE | 2020-08-20 14:11 | NUR ---
Patient in O.R. in stable condition.
[2020-08-20] MEDS ORDERED: MORPHINE 4 MG/ML INJ. SYRINGE IVP PRN (15:15)
[2020-08-20] MEDS ORDERED: MORPHINE 4 MG/ML INJ. SYRINGE ONE (15:39)
[2020-08-20 15:50] VITALS: BP_SYST 137
[2020-08-20 16:00] VITALS: BP_SYST 153
--- NOTE | 2020-08-20 16:15 | NUR ---
Patient returned from O.R. patient stable, tolerating room air with no signs of distress.
--- NOTE | 2020-08-20 19:00 | NUR ---
Closing note patient in bed resting, no signs of distress noted, respirations even and unlabored, patient tolerating oxygen on room air, clayton catheter intact and draining by gravity, safety measures maintained through out shift, bed locked and in low position, call light within reach, endorsed patient care to oncoming maintenance technician 3rd shift nurse.
--- NOTE | 2020-08-20 19:15 | NUR ---
OPENING NOTE REPORT RECEIVED FROM DAYSLAFT NURSE. PATIENT RECEIVED LYING IN BED, EYES CLOSED, APPEARS TO BE ASLEEP, NO S/S OF ACUTE DISTRESS NOTED. HOB RAISED. BREATHING EVEN AND UNLABORED. IVF AND TPN INFUSING WELL. JOINER ATTACHED, SECURED, AND DRAINING BY GRAVITY. CALL LIGHT WITH PATIENT. BED ALARM ON. BED IS LOCKED AND AT LOWEST POSITION. WILL CONTINUE TO MONITOR.
[2020-08-20] MEDS: cefTRIAXone 1 GM in D5W 50 ML IV SCH (19:52)
[2020-08-20 20:00] VITALS: BP_SYST 136
[2020-08-20] MEDS: VANCOMYCIN HCL 1,250 MG in NS 250 ML IV SCH (20:47)
[2020-08-20] MEDS: ENOXAPARIN SODIUM 40 MG/0.4 ML SYRINGE SUBCUT SCH (20:49)
[2020-08-20] MEDS ORDERED: POTASSIUM CHLORIDE IV SCH ×10 (21:00)
[2020-08-20] MEDS ORDERED: SODIUM ACETATE IV SCH ×10 (21:00)
[2020-08-20] MEDS ORDERED: TPN CENTRAL IV SCH ×10 (21:00)
[2020-08-20] MEDS ORDERED: [UNRECOGNIZED DRUG - OTHER] IV SCH ×10 (21:00)
[2020-08-20] MEDS ORDERED: NA PHOS IV SCH ×10 (21:00)
--- NOTE | 2020-08-20 21:00 | NUR ---
ROUNDS PATIENT IN BED SLEEPING AT THIS TIME. NO SIGNS OF DISCOMFORT. HOB RAISED. IVF AND TPN INFUSING WELL. BED ALARM ON. WILL CONTINUE TO MONITOR.
--- NOTE | 2020-08-20 23:00 | NUR ---
ROUNDS PATIENT IN BED SLEEPING. NO CHANGE FROM PREVIOUS CONDITION. ALL NEEDS MET. BED ALARM ON. WILL CONTINUE TO MONITOR.
[2020-08-21] MEDS: INSULIN REGULAR, HUMAN 100 UNITS/ML, 10 ML VIAL (humuLIN R) SUBCUT PRN ×4 (00:24→18:07)
--- NOTE | 2020-08-21 01:00 | NUR ---
ROUNDS PATIENT ASLEEP AT THIS TIME. NO S/S OF ACUTE DISTRESS NOTED. HOB RAISED. BREATHING EVEN AND UNLABORED. IVF INFUSING WELL. BED ALARM ON. WILL CONTINUE TO MONITOR.
[2020-08-21 01:39] VITALS: BP_SYST 113
--- NOTE | 2020-08-21 03:00 | NUR ---
ROUNDS PATIENT IN BED, SLEEPING COMFORTABLY. NO S/S OF ACUTE DISTRESS NOTED. BREATHING EVEN AND UNLABORED. BED ALARM ON. WILL CONTINUE TO MONITOR.
--- NOTE | 2020-08-21 05:00 | NUR ---
ACCUCHECK/WOUNDCARE/PERICARE PATIENT CLEANED BY SAFETY AIDE AND RN. WOUNDCARE DONE AT THIS TIME. ACCUCHECK DONE, BS AT 221, 4 UNITS OF HUMILIN 4 ADMINISTERED PER SLIDING SCALE. ALL NEEDS MET. HOB RAISED, IVF AND TPN INFUSING WELL. BED ALARM ON. WILL CONTINUE TO MONITOR.
[2020-08-21] MEDS: BALSAM PERU/CASTOR OIL 60 GM OINT...G. TP SCH ×2 (05:03→09:00)
--- NOTE | 2020-08-21 06:29 | NUR ---
CLOSING NOTES PATIENT IN BED, EYES CLOSED, APPEARS TO BE ASLEEP. NO S/S OF ACUTE DISTRESS NOTED. BREATHING EVEN AND UNLABORED. HOB RAISED. TPN INFUSING WELL, IV SITE PATENT, NO SIGNS OF INFILTRATION OR INFECTION NOTED. SKIN WARM AND DRY TO TOUCH. JOINER ATTACHED, SECURED, AND DRAINING BY GRAVITY. ALL NEEDS MET THROUGHOUT SHIFT. FALL, SAFETY, AND ISOLATION PRECAUTIONS MAINTAINED THROUGHOUT SHIFT. WILL CONTINUE TO MONITOR UNTIL PATIENT CARE IS ENDORSED TO ONCOMING DAYSHIFT NURSE.
[2020-08-21 07:45] VITALS: BP_SYST 146
--- NOTE | 2020-08-21 07:45 | NUR ---
Opening Note patient resting in bed on air mattress, a/o x 1, reoriented patient to place/time/event, no signs of distress noted, respirations even and unlabored on room air, IV line patent and infusing well, bed locked and at lowest position, catheter intact and draining by gravity, G Tube intact and locked, fall/aspiration precautions put in place, call light within reach, will monitor patient for any changes.
[2020-08-21 07:56] LABS: ALANINE AMINOTRANSFERASE 18 U/L (12-78); ALBUMIN 2.4 g/dL (3.4-4.8); ANION GAP 7 (5-15); ASPARTATE AMINOTRANSFERASE 13 U/L (10-37); CALCIUM 9.2 mg/dL (8.4-11.0); CHLORIDE 102 mmol/L (98-107); CREATININE 0.71 mg/dL (0.55-1.30); GLUCOSE 228 mg/dL (70-99); PHOSPHORUS 3.2 mg/dL (2.7-4.5); SODIUM SERUM 133 mmol/L (136-145); TOTAL BILIRUBIN 0.2 mg/dL (0.0-1.0); UREA NITROGEN, BLOOD 19 mg/dL (8-21)
[2020-08-21] MEDS ORDERED: NALOXONE HCL 0.4 MG/ML AMP (NARCAN) IVP PRN (09:15)
[2020-08-21] MEDS: ACETAMINOPHEN/CODEINE 300 MG-30 MG TABLET PO PRN ×2 (09:37→18:06)
--- NOTE | 2020-08-21 09:37 | NUR ---
RN Rounds/Medications patient in bed resting, respirations even and unlabored, administration of pain medication as ordered per MD, no residual from G tube, patient tolerated well, safety measures maintained, will continue to monitor patient, bed locked and at lowest position, call light within in patient reach.
[2020-08-21] MEDS: KCL 20 mEq in 0.45% NS 1000 mL 1,000 ML IV SCH ×2 (10:22→21:42)
--- NOTE | 2020-08-21 10:23 | NUR ---
RN Rounds patient in bed resting no signs of distress noted, administered IV fluids, patient tolerated well, bed locked and at lowest position, call light within reach, fall/aspiration/contact precautions maintained.
--- NOTE | 2020-08-21 10:37 | NUR ---
Tube Feeding orders received to start tube feeding, Glucerna 1.2 started at 20 ml per hour, zero residuals at start of tube feeding, tube feeding infusing well, head of bed elevated 35 degrees, abdominal binder in place, no acute distress noted.
--- NOTE | 2020-08-21 11:40 | NUR ---
RN Rounds patient in bed sleeping, no signs of distress noted, respirations even and unlabored, safety precautions maintained, will continue to monitor patient for any changes.
[2020-08-21 12:23] VITALS: BP_SYST 122
--- NOTE | 2020-08-21 14:35 | NUR ---
RN rounds patient resting in bed, eyes closed, breathing is even and unlabored, no signs of distress, continuing to monitor, bed in lowest position, three side rails up, bed close to nursing station, bed alarm on, fall, aspiration and isolation precautions in place.
--- NOTE | 2020-08-21 16:20 | NUR ---
RN Rounds patient in bed resting, no signs of distress noted, respirations even and unlabored, safety measures maintained.
[2020-08-21 16:57] VITALS: BP_SYST 116
--- NOTE | 2020-08-21 18:56 | NUR ---
Closing Note patient in bed resting, a/o x 1, reoriented patient to time/place/event, respirations even and unlabored, patient tolerating oxygen on room air, clayton catheter intact and draining by gravity, G Tube intact no residual output, safety measures maintained through out shift, will endorse patient care to oncoming night monitor nurse.
--- NOTE | 2020-08-21 19:15 | NUR ---
OPENING NOTE PATIENT RECEIVED LYING IN BED, EYES CLOSED, APPEARS TO BE ASLEEP, NO S/S OF ACUTE DISTRESS NOTED. BREATHING EVEN AND UNLABORED. HOB RAISED. IVF AND TUBEFEEDING INFUSING WELL. JOINER ATTACHED, SECURED, AND DRAINING BY GRAVITY. BED ALARM ON. BED IS LOCKED AND AT LOWEST POSITION. WILL CONTINUE TO MONITOR.
[2020-08-21 20:00] VITALS: BP_SYST 118
[2020-08-21] MEDS ORDERED: NA PHOS IV SCH ×10 (21:00)
[2020-08-21] MEDS ORDERED: [UNRECOGNIZED DRUG - OTHER] IV SCH ×10 (21:00)
[2020-08-21] MEDS ORDERED: TPN CENTRAL IV SCH ×10 (21:00)
[2020-08-21] MEDS ORDERED: POTASSIUM CHLORIDE IV SCH ×10 (21:00)
[2020-08-21] MEDS ORDERED: SODIUM ACETATE IV SCH ×10 (21:00)
[2020-08-21] MEDS: cefTRIAXone 1 GM in D5W 50 ML IV SCH (21:42)
[2020-08-21] MEDS: ENOXAPARIN SODIUM 40 MG/0.4 ML SYRINGE SUBCUT SCH (21:43)
[2020-08-21] MEDS: VANCOMYCIN HCL 1,250 MG in NS 250 ML IV SCH (22:34)
[2020-08-22] VITALS: BP_SYST 152
[2020-08-22] MEDS: INSULIN REGULAR, HUMAN 100 UNITS/ML, 10 ML VIAL (humuLIN R) SUBCUT PRN ×5 (00:36→23:11)
--- NOTE | 2020-08-22 07:31 | NUR ---
CLOSING NOTE PATIENT IN BED, RESTING, NO S/S OF ACUTE DISTRESS NOTED. BREATHING EVEN AND UNLABORED. HOB RAISED, IVF AND TUBE FEEDING INFUSING WELL, IV SITE IS PATENT, NO SIGNS OF INFILTRATION OR INFECTION NOTED. SKIN IS WARM AND DRY TO TOUCH. JOINER ATTACHED, SECURED, AND DRAINING BY GRAVITY. ALL NEEDS MET. SAFETY, FALL, AND ISOLATION PRECAUTIONS MAINTAINED THROUGHOUT SHIFT. PATIENT CARE ENDORSED TO DAY NURSE.
[2020-08-22 07:44] VITALS: BP_SYST 154
[2020-08-22 08:18] LABS: ALANINE AMINOTRANSFERASE 22 U/L (12-78); ALBUMIN 2.4 g/dL (3.4-4.8); ANION GAP 6 (5-15); ASPARTATE AMINOTRANSFERASE 17 U/L (10-37); CALCIUM 9.2 mg/dL (8.4-11.0); CHLORIDE 102 mmol/L (98-107); CREATININE 0.78 mg/dL (0.55-1.30); GLUCOSE 335 mg/dL (70-99); PHOSPHORUS 3.4 mg/dL (2.7-4.5); POTASSIUM 4.3 mmol/L (3.5-5.1); SODIUM SERUM 132 mmol/L (136-145); TOTAL BILIRUBIN 0.1 mg/dL (0.0-1.0); UREA NITROGEN, BLOOD 21 mg/dL (8-21)
[2020-08-22] MEDS: BALSAM PERU/CASTOR OIL 60 GM OINT...G. TP SCH (09:26)
--- NOTE | 2020-08-22 09:30 | NUR ---
RN Rounds/Medications patient in bed resting, no signs of distress noted, respirations even and unlabored, administered medications ordered per MD, patient tolerated well, no other needs at this time, bed locked and at low position, call light within reach, will continue to monitor patient for any changes, fall/aspiration/contact precautions maintained.
[2020-08-22 12:00] VITALS: BP_SYST 152
[2020-08-22] MEDS: KCL 20 mEq in 0.45% NS 1000 mL 1,000 ML IV SCH (12:18)
[2020-08-22] MEDS: ACETAMINOPHEN/CODEINE 300 MG-30 MG TABLET PO PRN (12:38)
--- NOTE | 2020-08-22 12:50 | NUR ---
MD Rounds Dr. Boyd assessing patient at bedside, informed of residual of 90 ml, MD order to keep G tube feeding at 20 ml.
--- NOTE | 2020-08-22 13:21 | NUR ---
Pt to transfer to [facility] 6 at 4pm-number for report [phone]-transport by [facility]
--- NOTE | 2020-08-22 14:02 | NUR ---
Spoke with Physician spoke with Dr. Tariq, informed him that patient has been accepted to [facility], informed him that patient is receiving TPN and TF glucerna 1.2 at 20ml/hr, informed him that patient had TF residual 90ml today and that per Dr. Boyd TF should be continued at 20ml/hr for now and not advanced towards goal rate of 50ml/hr, per Dr. Tariq patient will not be discharged today, informed MIRNA Rajan, cancelled vegetable picker with [facility].
--- NOTE | 2020-08-22 16:05 | NUR ---
INCONTINENT patient incontinent of bowels, patient cleaned and assisted to reposition with assistance from DECK MECHANIC, patient tolerated well, HOB elevated 35 degrees.
[2020-08-22 16:13] VITALS: BP_SYST 157
--- NOTE | 2020-08-22 19:05 | NUR ---
PICC Line Dressing Change educated patient on purpose and procedure of dressing change, PICC line to left upper arm completed, aseptic technique observed, Bio patch in place, transparent dressing in place, patient tolerated well.
--- NOTE | 2020-08-22 19:35 | NUR ---
Closing Note patient in bed resting, no pain noted using FLACC scale, room close to nursing station, bed locked and at low position, call light within reach, fall/aspiration/contact precautions maintained through out shift, endorsed patient care to security shift supervisor nurse.
[2020-08-22 21:00] VITALS: BP_SYST 156
[2020-08-22] MEDS ORDERED: TPN CENTRAL IV SCH ×11 (21:00)
[2020-08-22] MEDS ORDERED: SODIUM ACETATE IV SCH ×11 (21:00)
[2020-08-22] MEDS ORDERED: POTASSIUM CHLORIDE IV SCH ×11 (21:00)
[2020-08-22] MEDS ORDERED: NA PHOS IV SCH ×11 (21:00)
[2020-08-22] MEDS ORDERED: [UNRECOGNIZED DRUG - OTHER] IV SCH ×11 (21:00)
[2020-08-22] MEDS: hydrALAZINE HCL 20 MG/ML VIAL IVP PRN (22:45)
[2020-08-22] MEDS: cefTRIAXone 1 GM in D5W 50 ML IV SCH (22:56)
[2020-08-22] MEDS: VANCOMYCIN HCL 1,250 MG in NS 250 ML IV SCH (22:56)
[2020-08-22] MEDS: ENOXAPARIN SODIUM 40 MG/0.4 ML SYRINGE SUBCUT SCH (22:58)
[2020-08-23] VITALS (7 sets, daily range): BP systolic 129–156
[2020-08-23] MEDS: KCL 20 mEq in 0.45% NS 1000 mL 1,000 ML IV SCH ×2 (00:28→14:51)
[2020-08-23] MEDS: INSULIN REGULAR, HUMAN 100 UNITS/ML, 10 ML VIAL (humuLIN R) SUBCUT PRN ×3 (06:10→17:26)
[2020-08-23 06:51] LABS: BASOPHILS # (AUTO) 0.1 K/uL (0.0-0.2); BASOPHILS % (AUTO) 1.3 % (0.0-2.0); EOSINOPHILS # (AUTO) 0.3 K/uL (0.0-0.4); EOSINOPHILS % (AUTO) 3.9 % (0.0-4.0); HEMATOCRIT 33.3 % (36-48); HEMOGLOBIN 11.3 g/dL (12.0-16.0); LYMPHOCYTES # (AUTO) 1.7 K/uL (1.0-5.5); MEAN CORPUSCULAR HEMOGLOBIN 32 pg (27-31); MEAN CORPUSCULAR HGB CONC 34 % (32-36); MEAN CORPUSCULAR VOLUME 94 fL (79.0-98.0); MONOCYTES # (AUTO) 0.7 K/uL (0.0-1.0); MONOCYTES % (AUTO) 11.1 % (1.7-9.3); NEUTROPHILS # (AUTO) 3.9 K/uL (1.8-7.7); NEUTROPHILS % (AUTO) 58.7 % (40.0-70.0); PLATELET COUNT (AUTO) 371 K/uL (130-430); RED BLOOD CELL COUNT(AUTO) 3.55 MIL/uL (4.2-6.2); RED CELL DISTRIBUTION WIDTH 13.9 % (9.0-15.0); WHITE BLOOD COUNT (AUTO) 6.6 K/uL (4.8-10.8)
[2020-08-23 07:15] LABS: ALANINE AMINOTRANSFERASE 20 U/L (12-78); ALBUMIN 2.3 g/dL (3.4-4.8); ANION GAP 8 (5-15); ASPARTATE AMINOTRANSFERASE 6 U/L (10-37); CHLORIDE 99 mmol/L (98-107); CREATININE 0.74 mg/dL (0.55-1.30); GLUCOSE 397 mg/dL (70-99); PHOSPHORUS 3.3 mg/dL (2.7-4.5); POTASSIUM 4.2 mmol/L (3.5-5.1); SODIUM SERUM 132 mmol/L (136-145); TOTAL BILIRUBIN 0.2 mg/dL (0.0-1.0); UREA NITROGEN, BLOOD 22 mg/dL (8-21)
--- NOTE | 2020-08-23 07:30 | NUR ---
Opening Note received beside SBAR report from slot shift supervisor RN, patient resting in bed, respirations even and unlabored on room air, no pain noted using FLACC scale, no acute distress noted, room close to nurses station, tube feeding infusing glucerna 1.2 @ 20ml/hr, clayton catheter draining to gravity, educated patient on use of call light and asked to call for assistance, call light in reach, bed in low and locked position, bed alarm on.
[2020-08-23] MEDS: BALSAM PERU/CASTOR OIL 60 GM OINT...G. TP SCH (08:07)
[2020-08-23] MEDS: cloNIDine HCL 0.3 MG/24 HR PATCH.TDWK TD SCH (08:08)
--- NOTE | 2020-08-23 10:10 | NUR ---
Case mgt: S/W Dr. Tariq --pt's G-tube feeding residuals are elevated (75cc+ per nurse Laura), Heart rate was 115 this am--discharge to [facility] still held--pt is isolation--Our vipul Vaughn is notifying [facility] of dc being held--ASHLEY JOHNSON Addendum: 08/23/20 at 1016 by Pooja Morse RN Caitlyn at [facility] snf notified that transfer is held today and that Johana had notified their outpatient receptionist and confirmed bed will be available tomorrow 08/24/20 Addendum: 08/23/20 at 1021 by Pooja Morse RN Case mgt: I called pt's dtr Tatyana at [phone] and updated her that pt is not transferring to [facility] today and her G-tube feedings are being monitored here another 24 hours. ASHLEY JOHNSON
--- NOTE | 2020-08-23 10:24 | NUR ---
Tube Feeding/Physician Rounds rounds with Dr. Tariq, informed him that per shift stacker RN tube feeding residuals this morning were 75ml, current residual is 5ml, tube feeding increased from 20ml/hr to 30ml/hr at this time, working towards goal rate of 50ml/hr, HOB elevated 35 degrees, no acute distress noted, okay per Dr. Tariq.
--- NOTE | 2020-08-23 12:14 | NUR ---
Wound Care/Oral Care educated patient on purpose and procedure for wound care, wound care to sacral wound completed, patient tolerated well, no pain noted during or after wound care, see MST shift assessment for wound care, gown and linen changed, oral care provided to patient, patient tolerated well, HOB elevated 35 degrees, heels floating.
--- NOTE | 2020-08-23 12:55 | NUR ---
Tube Feeding new tube feeding with new tubing hung at this time, glucerna 1.2 at 30ml/hr, patient tolerating well, 5ml residual from tube feeding at this time, HOB elevated 35 degrees, no acute distress noted.
--- NOTE | 2020-08-23 15:15 | NUR ---
RN Rounds patient resting in bed, respirations even and unlabored on room air, no pain noted using FLACC scale, IV fluids infusing well, no acute distress noted.
--- NOTE | 2020-08-23 17:43 | NUR ---
RN Rounds repositioned patient, patient tolerated well, no acute distress noted, patient awake with eyes open, no pain noted using FLACC scale, HOB elevated 35 degrees, tube feeding infusing well.
--- NOTE | 2020-08-23 19:13 | NUR ---
Closing Note bedside SBAR report given to receiving RN, patient resting in bed, respirations even and unlabored on room air, no pain noted using FLACC scale, no acute distress noted, room close to nurses station, educated patient on use of call light and asked to call for assistance, patient verbalized understanding, call light in reach, educated patient on use of bed alarm for patient safety, patient verbalized understanding, patient refusing bed alarm, bed in low and locked position, care endorsed to Laureen JOHNSON.
[2020-08-23] MEDS: cefTRIAXone 1 GM in D5W 50 ML IV SCH (20:47)
[2020-08-23] MEDS ORDERED: NA PHOS IV SCH ×11 (21:00)
[2020-08-23] MEDS ORDERED: SODIUM ACETATE IV SCH ×11 (21:00)
[2020-08-23] MEDS ORDERED: [UNRECOGNIZED DRUG - OTHER] IV SCH ×11 (21:00)
[2020-08-23] MEDS ORDERED: POTASSIUM CHLORIDE IV SCH ×11 (21:00)
[2020-08-23] MEDS ORDERED: TPN CENTRAL IV SCH ×11 (21:00)
[2020-08-23] MEDS: VANCOMYCIN HCL 1,250 MG in NS 250 ML IV SCH (22:30)
[2020-08-23] MEDS: ENOXAPARIN SODIUM 40 MG/0.4 ML SYRINGE SUBCUT SCH (22:31)
[2020-08-24] MEDS: INSULIN REGULAR, HUMAN 100 UNITS/ML, 10 ML VIAL (humuLIN R) SUBCUT PRN ×4 (00:26→17:32)
[2020-08-24 00:40] VITALS: BP_SYST 160
[2020-08-24] MEDS: KCL 20 mEq in 0.45% NS 1000 mL 1,000 ML IV SCH ×2 (04:50→17:26)
[2020-08-24 06:40] LABS: BASOPHILS # (AUTO) 0.1 K/uL (0.0-0.2); BASOPHILS % (AUTO) 1.7 % (0.0-2.0); EOSINOPHILS # (AUTO) 0.6 K/uL (0.0-0.4); EOSINOPHILS % (AUTO) 8.2 % (0.0-4.0); HEMATOCRIT 33.5 % (36-48); HEMOGLOBIN 11.3 g/dL (12.0-16.0); LYMPHOCYTES # (AUTO) 2.9 K/uL (1.0-5.5); MEAN CORPUSCULAR HEMOGLOBIN 32 pg (27-31); MEAN CORPUSCULAR HGB CONC 34 % (32-36); MEAN CORPUSCULAR VOLUME 94 fL (79.0-98.0); MONOCYTES # (AUTO) 0.8 K/uL (0.0-1.0); MONOCYTES % (AUTO) 12.4 % (1.7-9.3); NEUTROPHILS # (AUTO) 2.4 K/uL (1.8-7.7); NEUTROPHILS % (AUTO) 35.7 % (40.0-70.0); PLATELET COUNT (AUTO) 344 K/uL (130-430); RED BLOOD CELL COUNT(AUTO) 3.54 MIL/uL (4.2-6.2); RED CELL DISTRIBUTION WIDTH 14.1 % (9.0-15.0); WHITE BLOOD COUNT (AUTO) 6.8 K/uL (4.8-10.8)
[2020-08-24 07:09] LABS: ALANINE AMINOTRANSFERASE 24 U/L (12-78); ALBUMIN 2.5 g/dL (3.4-4.8); ANION GAP 7 (5-15); CALCIUM 9.3 mg/dL (8.4-11.0); CHLORIDE 100 mmol/L (98-107); CREATININE 0.62 mg/dL (0.55-1.30); GLUCOSE 299 mg/dL (70-99); PHOSPHORUS 3.4 mg/dL (2.7-4.5); POTASSIUM 4.2 mmol/L (3.5-5.1); SODIUM SERUM 134 mmol/L (136-145); TOTAL BILIRUBIN 0.1 mg/dL (0.0-1.0); UREA NITROGEN, BLOOD 22 mg/dL (8-21)
[2020-08-24 08:00] VITALS: BP_SYST 140
--- NOTE | 2020-08-24 08:00 | NUR ---
Opening Notes Patient is laying in bed, resting at this time. Pt remains on contact isolation and seizure precautions. Alert and oriented x1. Patient is nonverbal at this time. No resp distress noted. Breathing is even and unlabored at this time. PICC LINE ON NORMA, double lumen, flushing well at this time, blood return noted. Dressing is clean and dry at this time. TPN infusing at this time and KCl 30 mEq + 1/2 NS @ 75 cc/hr, infusing well at this time. GTUBE site intact, changed dressing, dressing clean and dry. No residual noted. Tube feeding: Glucerna 1.2 @ 40 cc/hr, infusing well. HOB @ 30 degrees. Pt seen and examined by Dr. Boyd, obtained new orders to increase feeding rate to 40 cc/hr, tolerating well at this time. Flores catheter in place, draining by gravity, yellow and clear urine noted, emptied out 600 cc. Patient was given a bed bath, tolerated well. Given new linens as well. All needs met at this time. Safety and fall precautions in place. Bed in lowest position, alarm on, locked. Will continue to monitor.
--- NOTE | 2020-08-24 08:10 | NUR ---
Patient is being seen and examined by DR. SANCHEZ
[2020-08-24 08:11] LABS: ASPARTATE AMINOTRANSFERASE 13 U/L (10-37)
[2020-08-24] MEDS: BALSAM PERU/CASTOR OIL 60 GM OINT...G. TP SCH (09:53)
--- NOTE | 2020-08-24 10:48 | NUR ---
Notes Patient is sleeping at this time. No resp distress noted. Breathing is even and unlabored. Shows no signs of pain at this time. Will continue to monitor.
--- NOTE | 2020-08-24 11:30 | NUR ---
Blood Sugar Patients BS was noted at 348 mg/dL. Per sliding scale, administered 8 units of regular insulin, tolerated well. Will continue to monitor.
--- NOTE | 2020-08-24 12:00 | NUR ---
Notes Patient is sleeping at this time. No distress noted. Will continue to monitor.
[2020-08-24 13:16] VITALS: BP_SYST 139
--- NOTE | 2020-08-24 14:03 | NUR ---
Nutrition F/U Admitting Diagnosis: Cellulitis of Abdominal Wall Medical History Comment: PMH: Dementia, DM, Dysphagia, G-tube feeding Pt also found w/ G-tube site w/ leukocytosis, severe malnutrition per MD note. 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 Per EMR review, pt is on EN + TPN support. Collectively, provides: 2630 kcal and 142 gm protein daily which meets >125% of estimated nutrient needs. BG are trending up possibly d/t excessive calories and protein from EN and TPN support. RD s/w pt's primary RN Kenzie who reported that current EN support is infusing at 40ml/hr (vs EN order of 20ml/hr), tolerated by pt and no residual, and TPN is infusing at 70ml/hr. RD informed RN of adjustments on nutrition support. PharmD order for tonight TPN bag for 80ml/hr. Last triglyceride was obtained on 08/15 and needs to be checked. RD s/w pharmD Julius who agrees w/ RD rec. Current Diet Order/Nutrition Support: Glucerna 1.2 at 20ml/hr FWF 0ml via GT. (Current ly infusing at 40ml/hr) + D40% AA10.0% at 70ml/hr via central line PROVIDES: 2630 KCAL, 142GM PROTEIN AND MEETS >125% OF ESTIMATED NUTRIENT NEEDS (Excessive) Pertinent Medications: Vancomycin, SSI, Lovenox Pertinent Labs 08/24 Na 134 L, K 4.2 WNL, BUN 22 WNL, CRE 0.62 WNL, BG 299 H, POC BG 282H, 08/15 TG 160H Skin Integrity Comment: Derian scale 14. Per Glassware Selector note 08/18: 1. Left Medial Heel: Unstageable pressure ulcer, present on admission 90% light yellow tissue, 10% brown slough. No odor, scant yellow drainage. Periwound intact. 2. Left Lateral Foot Near Fifth Metatarsal Head: Stage IV pressure ulcer, present on admission. 3. Sacral-Coccygeal Area: Stage IV pressure ulcer, present on admission. 4. Abdomen: G-tube exit site (recent accidental dislodgment) with possible abscess or fistula, present on admission. Open area measures 0.7 cm x 1.4 cm x 6.6 cm. Ludy-wound has yellow tissue. Surrounding tissue has erythema. Mild odor, copious amounts of black drainage (possible gastric contents) draining from site with small amount of blood. Current % PO N/A, ON EN support Estimated Energy Expenditure (kcals/day) 5833-7637 kcal/day (30-35 kcal/kg IBW for wound healing) Estimated Protein Required (g/day) 65-82 g pro/day (1.2-1.5 g pro/kg IBW for wound healing) Estimated Fluid Required (l/day) 1.6-1.9L/day (1ml/kcal/day for maintenance) Problem/Etiology/Signs/Symptoms Inadequate protein energy intake r/t increased nutritional demands for healing AEB NPO and pt w/ Stage 4 pressure ulcer on Sacrum and wound on G-tube site. (*improved, now on TPN) Altered nutrition related lab values r/t endocrine dysfunction AEB DM and elevated BG and POC BG lab values. (*ongoing) Excessive nutrient intake r/t current order for nutrition support AEB EN and TPN support combined provide >125% of estimated needs. (*new 08/24) Expected Outcomes/Goals -Will monitor tolerance of nutrtition support w/ goal of pt meeting at least 75% of estimated nutrtitional needs, labs, trending WNL, normal GI function, skin integrity, and weight maintenance. Dietitian Recommendations *Recommend: increase EN infusion rate to goal of 55ml/hr Glucerna 1.2 at 55ml/hr, FWF 100ml Q6H via GT *Recommend: taper down TPN to 45ml/hr and eventually stop TPN once EN is at goal rate and tolerated by pt. D40% AA 10% at 45ml/hr (new goal, taper down), no lipid via central line Follow Up High Risk: F/U in 2-3days Addendum: 08/24/20 at [address] Dietitian Recommendation: *Obtain Triglyceride. WIL PECK
--- NOTE | 2020-08-24 14:26 | NUR ---
Dietitian Recommendations *Recommend: increase EN infusion rate to goal of 55ml/hr Glucerna 1.2 at 55ml/hr, FWF 100ml Q6H via GT *Recommend: taper down TPN to 45ml/hr and eventually stop TPN once EN is at goal rate and tolerated by pt. D40% AA 10% at 45ml/hr (new goal, taper down), no lipid via central line *Obtain Triglyceride. Please see Nutrition F/U note for details. CISCO, RD
--- NOTE | 2020-08-24 16:45 | NUR ---
Notes/Tube Feeding Patient is laying in bed resting at this time. Patient shows no signs of distress at this time. No signs of pain at this time. NEW TUBE feeding hung, Glucerna 1.2 @ 40 cc/hr, infusing well at this time. Repositioned with pillows. All needs met at this time. Safety, fall and seizure precautions in place. Will continue to monitor.
[2020-08-24 16:58] VITALS: BP_SYST 125
--- NOTE | 2020-08-24 17:30 | NUR ---
Blood Sugar Patients BS was noted at 161 mg/dL. Per sliding scale, administered 2 units of regular insulin, tolerated well. Will continue to monitor.
--- NOTE | 2020-08-24 18:48 | NUR ---
Closing Notes Patient is laying in bed resting at this time. No resp distress noted. Breathing is even and unlabored. Patient shows no signs of pain at this time. PICC LINE on NORMA, double lumen, flushing well at this time. Blood return noted. Dressing is clean and dry. KCl 20 mEq + 1/2 NS @ 75 cc/hr, infusing well at this time. PPN @ 60 cc/hr, infusing well at this time. GTUBE site intact, clean and dry, Tube feed: Glucerna 1.2 @ 40 cc/hr, infusing well at this time. Flores catheter in place, draining by gravity, emptied out 600 cc of clear and yellow urine. Repositioned with pillows. All needs met at this time. Safety, fall and seizure precautions in place. Bed in lowest position, alarm on, locked. Will continue to monitor.
[2020-08-24 19:45] VITALS: BP_SYST 141
--- NOTE | 2020-08-24 19:45 | NUR ---
INITIAL NOTE AT INITIAL ASSESSMENT, PATIENT IS RESTING IN BED, STABLE, NO SIGNS OF RESPIRATORY DISTRESS. PATIENT SHOWS NO PAIN PER FLACC SCALE USED. PLAN OF CARE FOR THE EVENING IS COMMUNICATED WITH THE PATIENT. PATIENT IS UNSUCCESSFUL IN DEMONSTRATION OF CALL LIGHT USAGE AT THIS TIME DUE TO COGNITIVE IMPAIRMENT, FREQUENT ROUNDING WILL BE COMPLETED. BED IS LOCKED, ALARMED, AND AT THE LOWEST LEVEL. FALL, SAFETY, RESPIRATORY, AND ASPIRATION PRECAUTIONS WILL BE TAKEN THROUGHOUT THE SHIFT.
[2020-08-24] MEDS: cefTRIAXone 1 GM in D5W 50 ML IV SCH (20:09)
[2020-08-24] MEDS: ENOXAPARIN SODIUM 40 MG/0.4 ML SYRINGE SUBCUT SCH (20:12)
[2020-08-24] MEDS: VANCOMYCIN HCL 1,250 MG in NS 250 ML IV SCH (20:12)
[2020-08-24] MEDS: ACETAMINOPHEN/CODEINE 300 MG-30 MG TABLET PO PRN (20:18)
[2020-08-24] MEDS ORDERED: SODIUM ACETATE IV SCH ×11 (21:00)
[2020-08-24] MEDS ORDERED: TPN CENTRAL IV SCH ×11 (21:00)
[2020-08-24] MEDS ORDERED: SODIUM CHLORIDE IV SCH ×11 (21:00)
[2020-08-24] MEDS ORDERED: NA PHOS IV SCH ×11 (21:00)
[2020-08-24] MEDS ORDERED: [UNRECOGNIZED DRUG - OTHER] IV SCH ×11 (21:00)
--- NOTE | 2020-08-24 21:45 | NUR ---
NOTE SCHEDULED MEDICATIONS GIVEN AT THIS TIME. PATIENT IS STABLE, NO SIGNS OF RESPIRATORY DISTRESS. BED IS LOCKED, ALARMED, AND AT THE LOWEST LEVEL.
--- NOTE | 2020-08-24 23:45 | NUR ---
HYGIENE CARE HYGIENE CARE PROVIDED AT THIS TIME. PATIENT TOLERATED WELL. FRESH LINENS PROVIDED. SHE IS REPOSITIONED FOR COMFORT. BED IS LOCKED, ALARMED, AND AT THE LOWEST LEVEL.
[2020-08-25] VITALS: BP_SYST 98
--- NOTE | 2020-08-25 00:45 | NUR ---
NOTE PATIENT IS SLEEPING, STABLE, NO SIGNS OF RESPIRATORY DISTRESS. CALL LIGHT IS WITHIN REACH. BED IS LOCKED, ALARMED, AND AT THE LOWEST LEVEL.
[2020-08-25] MEDS: INSULIN REGULAR, HUMAN 100 UNITS/ML, 10 ML VIAL (humuLIN R) SUBCUT PRN ×3 (01:03→12:11)
[2020-08-25] MEDS: KCL 20 mEq in 0.45% NS 1000 mL 1,000 ML IV SCH (05:53)
--- NOTE | 2020-08-25 06:50 | NUR ---
CLOSING NOTE PATIENT SLEPT WELL THROUGHOUT THE NIGHT. AT THIS TIME, SHE IS RESTING IN BED, STABLE, NO SIGNS OF RESPIRATORY DISTRESS. CALL LIGHT PLACED WITHIN REACH. BED IS LOCKED, ALARMED, AND AT THE LOWEST LEVEL. FALL, SAFETY, RESPIRATORY, AND ASPIRATION PRECAUTIONS HAVE BEEN TAKEN THROUGHOUT THE SHIFT. WILL CONTINUE TO MONITOR UNTIL SHIFT REPORT IS GIVEN AT BEDSIDE TO AM NURSE. Addendum: 08/25/20 at 0801 by Almita Mariee RN NO RESIDUALS NOTED FROM G TUBE THROUGHOUT THE SHIFT.
[2020-08-25 07:35] LABS: ALANINE AMINOTRANSFERASE 23 U/L (12-78); ALBUMIN 2.2 g/dL (3.4-4.8); ANION GAP 1 (5-15); ASPARTATE AMINOTRANSFERASE 17 U/L (10-37); CALCIUM 8.8 mg/dL (8.4-11.0); CHLORIDE 101 mmol/L (98-107); CREATININE 0.71 mg/dL (0.55-1.30); GLUCOSE 195 mg/dL (70-99); PHOSPHORUS 4.3 mg/dL (2.7-4.5); POTASSIUM 4.3 mmol/L (3.5-5.1); SODIUM SERUM 133 mmol/L (136-145); TOTAL BILIRUBIN 0.1 mg/dL (0.0-1.0); TRIGLYCERIDES 370 mg/dL (30-150); UREA NITROGEN, BLOOD 38 mg/dL (8-21)
[2020-08-25 08:00] VITALS: BP_SYST 151
--- NOTE | 2020-08-25 08:00 | NUR ---
ASSUMPTION OF CARE: RECEIVED PT A/A/CONFUSED, VSS, AFEBRILE, BREATH SOUNDS ARE CLEAR, BREATHING UNLABORED, IV SITE INTACT, PATENT, NO REDNESS OR SWELLING, TOLERATING G TUBE FEEDING @ 40CC/HR, RESTING ON AIR MATTRESS, POSITIONED FOR COMFORT, CALL LIGHT PLACED WITHIN REACH, ROOM CLOSE TO NURSES STATION, WILL CONT' TO MONITOR AND ASSESS.
--- NOTE | 2020-08-25 09:30 | NUR ---
NURSES NOTES: TPN DISCONTINUED, PER ORDERED BY An, WILL CONT' TO MONITOR AND ASSESS.
[2020-08-25] MEDS: BALSAM PERU/CASTOR OIL 60 GM OINT...G. TP SCH (09:40)
--- NOTE | 2020-08-25 10:55 | NUR ---
Dietitian Note RD reviewed EMR, labs, care trends. Pt remains on EN and TPN support and has been receiving excessive nutrition for the past [address] rec to stop TPN and continue w/ EN support at 40ml/hr to increase EN infusion rate to goal rate. WIL s/w Tarik from Dr. Benjamin's answering service. MD was paged w/ RD rec and RD is a/w MD call back. RD s/w PharmD Julius for TPN tapering. 1045am. RD to follow per nutrition care standards. CISCO, WIL
--- NOTE | 2020-08-25 12:00 | NUR ---
NURSES NOTES: PT RESTING IN POSITION OF COMFORT, NO CHANGES NOTED AT THIS TIME, VSS, NO INDICATION OF PAIN OR DISCOMFORT, CALL LIGHT PLACED WITHIN REACH, WILL CONT' TO MONITOR AND ASSESS.
[2020-08-25 12:52] VITALS: BP_SYST 152
--- NOTE | 2020-08-25 13:06 | NUR ---
Pt to discharge to [facility]B. Number for report [phone]. [facility] ambulance to transport at 4PM
[2020-08-25 16:09] VITALS: BP_SYST 152
[2020-08-25 16:24] VITALS: BP_SYST 150
--- NOTE | 2020-08-25 16:30 | NUR ---
DISCHARGE: PT DISCHARGED TO [facility] IN STABLE CONDITION, REPORT GIVEN TO NURSE RAMONA JOHNSON, WILL BE TRANSPORTED VIA AMBULANCE, FAMILY NOTIFIED.
[2020-08-25] MEDS ORDERED: NA PHOS IV SCH ×12 (21:00)
[2020-08-25] MEDS ORDERED: [UNRECOGNIZED DRUG - OTHER] IV SCH ×12 (21:00)
[2020-08-25] MEDS ORDERED: SODIUM ACETATE IV SCH ×12 (21:00)
[2020-08-25] MEDS ORDERED: TPN CENTRAL IV SCH ×12 (21:00)
[2020-08-25] MEDS ORDERED: SODIUM CHLORIDE IV SCH ×12 (21:00)
== END 2020-08-25 17:39 | DRG 393 ==
LOC: SED 18:39 → SMU 23:02
PROVIDERS: ADMIT Family Medicine; ATTEND Family Medicine
PROC: 0DP6XUZ Removal of Feeding Device from Stomach, External Approach (ICD-10-PCS; 2020-08-12)
PROC: 0DH63UZ Insertion of Feeding Device into Stomach, Percutaneous Approach (ICD-10-PCS; 2020-08-12)
PROC: 02HV33Z Insertion of Infusion Device into Superior Vena Cava, Percutaneous Approach (ICD-10-PCS; 2020-08-15)
PROC: 3E0G76Z Introduction of Nutritional Substance into Upper GI, Via Natural or Artificial Opening (ICD-10-PCS; 2020-08-20)
PROC: 0DH63UZ Insertion of Feeding Device into Stomach, Percutaneous Approach (ICD-10-PCS; principal; 2020-08-20 14:10)
DX: K94.22 Gastrostomy infection (principal); E43 Unspecified severe protein-calorie malnutrition; L03.311 Cellulitis of abdominal wall; F05 Delirium due to known physiological condition; Z68.1 Body mass index [BMI] 19.9 or less, adult; L02.211 Cutaneous abscess of abdominal wall; K94.23 Gastrostomy malfunction; D64.9 Anemia, unspecified; E11.9 Type 2 diabetes mellitus without complications; F03.90 Unspecified dementia, unspecified severity, without behavioral disturbance, psychotic disturbance, mood disturbance, and anxiety; Y82.9 Unspecified medical devices associated with adverse incidents; M19.90 Unspecified osteoarthritis, unspecified site; B96.1 Klebsiella pneumoniae [K. pneumoniae] as the cause of diseases classified elsewhere; N20.0 Calculus of kidney; R13.10 Dysphagia, unspecified; Z20.828 Contact with and (suspected) exposure to other viral communicable diseases; Y83.3 Surgical operation with formation of external stoma as the cause of abnormal reaction of the patient, or of later complication, without mention of misadventure at the time of the procedure; Y82.8 Other medical devices associated with adverse incidents; Z91.02 Food additives allergy status
CPT/HCPCS: 36415; 71045; 80048; 80053; 80202-TC; 82962; 83605; 83735-TC; 84100-TC; 84478-TC; 85025; 87040-TC; 87070-TC; 87075-TC; 87081; 87186-TC; 93005; 96365; 96366; 96375; 99291; C1751; J0360; J0610; J0692; J0696; J1450; J1650; J1815; J2270; J2405; J2704; J3370; J3475; J3480; J3490; J7050; J7060; J7120; J7131; Q9967

== ENCOUNTER 2021-07-01 10:14 | Emergency (ER) | payer OTHER, MEDICAID ==
[~2021-07-01] VITALS: Ht 142.2 cm; Wt 45.4 kg
[~2021-07-01 10:14] MED LIST: APIX5TAB4 GT; ARGI1POW17 GT; ASCO500T20 GT; CAT3PAT TD; INSU100I26 SQ; IPRA4AER INH; LANS30CA53 GT; LISI10TA29 GT; MULT-1117 GT; POLY17PO4 GT; SSREG SUBCUT; TYC3 GT
[2021-07-01 10:15] VITALS: BP_SYST 165
--- NOTE | 2021-07-01 10:15 | NUR ---
BROUGHT IN BY [facility], PLACED IN BED #4 AND TRIAGED. REPORT GIVEN ARIELA
--- NOTE | 2021-07-01 10:20 | NUR ---
Pt bib EMS from [facility] for g-tube replacement, pt was found with g-tub dislodged ths morning. 16F clayton catheter placed by SNF staff, currently in place. V/S stable, no acute distress noted.
--- NOTE | 2021-07-01 10:38 | NUR ---
DR ROBLES AT BEDSIDE FOR EVALUATION
--- NOTE | 2021-07-01 10:50 | NUR ---
Dr. Betancur at bedside for g-tube replacement, 18F placed. Pt tolerated well, x-ray ordered for verification of placement.
--- NOTE | 2021-07-01 10:55 | NUR ---
Radiology at bedside for abdominal x-ray
[2021-07-01] MEDS ORDERED: GASTROGRAFIN 120 ML ONE (11:05)
[2021-07-01 12:35] VITALS: BP_SYST 165
--- NOTE | 2021-07-01 12:35 | NUR ---
Patient given written and verbal discharge instructions and verbalizes understanding. ER MD discussed with patient the results and treatment provided. Patient in stable condition. ID arm band removed. No prescriptions given. Patient educated on pain management and to follow up with PMD. Pain Scale 0. Opportunity for questions provided and answered. Medication side effect fact sheet provided.
== END 2021-07-01 12:35 ==
LOC: SED 10:14
DX: K94.29 Other complications of gastrostomy (principal); E11.9 Type 2 diabetes mellitus without complications; K21.9 Gastro-esophageal reflux disease without esophagitis; Z91.018 Allergy to other foods; Z79.4 Long term (current) use of insulin; Z79.899 Other long term (current) drug therapy
CPT/HCPCS: 43762; 74240; 99284; Q9963

== ENCOUNTER 2021-07-27 11:52 | Emergency (ER) | payer OTHER, MEDICAID ==
[~2021-07-27] VITALS: Ht 157.5 cm; Wt 54.4 kg
[2021-07-27 11:52] VITALS: BP_SYST 124
--- NOTE | 2021-07-27 11:52 | NUR ---
Patient to AMB1 for evaluation. Side rails up.
--- NOTE | 2021-07-27 11:53 | NUR ---
ER at bedside examining patient.
--- NOTE | 2021-07-27 12:00 | NUR ---
pt sent from [facility] for GT displacement. Flores cath in place.
[2021-07-27] MEDS ORDERED: GASTROGRAFIN 120 ML ONE (12:27)
--- NOTE | 2021-07-27 12:30 | NUR ---
GT TUBE PLACED
--- NOTE | 2021-07-27 12:35 | NUR ---
Portable XR done
[2021-07-27 12:45] VITALS: BP_SYST 124
--- NOTE | 2021-07-27 12:45 | NUR ---
Patient given written and verbal discharge instructions and verbalizes understanding. ER MD discussed with patient the results and treatment provided. Patient in stable condition. ID arm band removed. no Rx of given. Patient educated on pain management and to follow up with PMD. Pain Scale 0. Opportunity for questions provided and answered. Medication side effect fact sheet provided.
== END 2021-07-27 12:45 ==
LOC: SED 11:52
DX: K94.23 Gastrostomy malfunction (principal); E11.9 Type 2 diabetes mellitus without complications; K21.9 Gastro-esophageal reflux disease without esophagitis; Z91.018 Allergy to other foods; Z79.4 Long term (current) use of insulin; Z79.899 Other long term (current) drug therapy
CPT/HCPCS: 43762; 74240; 99284; Q9963

== ENCOUNTER 2024-07-05 19:06 | Inpatient (IN) | payer OTHER, MEDICAID ==
[~2024-07-05] VITALS: Ht 152.4 cm; Wt 50.3 kg
[2024-07-05 19:17] VITALS: BP_SYST 139; PULSE 134; RESP 32; TEMP 97; O2SAT 95
[2024-07-05] MEDS ORDERED: MEROPENEM 500 MG VIAL IV ONE (19:50)
[2024-07-05] MEDS: MEROPENEM 1 GM IVPB PREMIX 50 ML IV ONE (19:53)
[2024-07-05] MEDS: NACL 0.9% 1,000 ML IV ONE (20:30)
[2024-07-05] MEDS ORDERED: VANCOMYCIN HCL 1000 MG/VIAL IV ONE (20:34)
[2024-07-05 20:35] LABS: EOSINOPHILS # (AUTO) 0.1 K/uL (0.0-0.4)
[2024-07-05] MEDS: VANCOMYCIN HCL 1,000 MG in NS 250 ML IV ONE (20:37)
[2024-07-05 20:42] LABS: BASOPHILS % (AUTO) 0.1 % (0.0-2.0); EOSINOPHILS % (AUTO) 0.2 % (0.0-4.0); HEMATOCRIT 26.7 % (36-48); HEMOGLOBIN 8.9 g/dL (12.0-16.0); LYMPHOCYTES # (AUTO) 1.6 K/uL (1.0-5.5); MEAN CORPUSCULAR HEMOGLOBIN 27 pg (27-31); MEAN CORPUSCULAR HGB CONC 33 % (32-36); MEAN CORPUSCULAR VOLUME 80 fL (79.0-98.0); MONOCYTES # (AUTO) 2.9 K/uL (0.0-1.0); MONOCYTES % (AUTO) 7.4 % (1.7-9.3); NEUTROPHILS # (AUTO) 34.2 K/uL (1.8-7.7); NEUTROPHILS % (AUTO) 88.3 % (40.0-70.0); PLATELET COUNT (AUTO) 571 K/uL (130-430); RED BLOOD CELL COUNT(AUTO) 3.35 MIL/uL (4.2-6.2)
[2024-07-05 20:54] LABS: WHITE BLOOD COUNT (AUTO) 38.7 K/uL (4.8-10.8)
[2024-07-05 21:07] LABS: ALANINE AMINOTRANSFERASE 16 U/L (12-78); ALBUMIN 1.9 g/dL (3.4-4.8); ANION GAP 8 (5-15); ASPARTATE AMINOTRANSFERASE 22 U/L (10-37); BILIRUBIN,DIRECT 0.2 mg/dL (0.0-0.3); CALCIUM 8.6 mg/dL (8.4-11.0); CARBON DIOXIDE 25 mmol/L (23-29); CHLORIDE 94 mmol/L (98-107); CREATININE 1.14 mg/dL (0.55-1.30); GLUCOSE 107 mg/dL (74-106); POTASSIUM 4.5 mmol/L (3.5-5.1); SODIUM SERUM 127 mmol/L (136-145); TOTAL BILIRUBIN 0.4 mg/dL (0.0-1.0); TOTAL PROTEIN, SERUM 7.3 g/dL (6.4-8.3); UREA NITROGEN, BLOOD 42 mg/dL (8-21)
[2024-07-05 23:46] LABS: ABG O2 SAT% ESTIMATE 93.3 % (94.0-100.0); BLOOD GAS BASE EXCESS 0.1 mmol/L (-3.0-3.0); BLOOD GAS HCO3 22.9 mmol/L (21.0-27.0); BLOOD GAS PCO2 30.7 mmHg (35.0-45.0); BLOOD GAS PH 7.491 (7.350-7.450); BLOOD GAS PO2 60.5 mmHg (75.0-100.0)
[2024-07-05 23:47] LABS: ALLEN'S TEST POSITIVE (P)
[2024-07-06] VITALS (35 sets, daily range): BP systolic 84–168; PULSE 87–175; RESP 29–52; TEMP 97.2–101.2; O2SAT 78–100
[2024-07-06] MEDS ORDERED: IPRATROPIUM/ALBUTEROL SULFATE 3 ML AMPUL.NEB (DUONEB) INH PRN
[2024-07-06] MEDS: NACL 0.9% 1,000 ML IV ONE ×2 (00:06→09:42)
[2024-07-06] MEDS ORDERED: POLYETHYLENE GLYCOL 3350, 17 GM/ POWD.PACK GT SCH (00:30)
[2024-07-06] MEDS ORDERED: NALOXONE HCL 0.4 MG/ML AMP (NARCAN) IVP PRN (00:30)
[2024-07-06] MEDS: IPRATROPIUM/ALBUTEROL SULFATE 3 ML AMPUL.NEB (DUONEB) INH SCH (03:08)
[2024-07-06 05:33] LABS: HEMATOCRIT 26.8 % (36-48); HEMOGLOBIN 8.7 g/dL (12.0-16.0); MEAN CORPUSCULAR HEMOGLOBIN 27 pg (27-31); MEAN CORPUSCULAR HGB CONC 32 % (32-36); MEAN CORPUSCULAR VOLUME 82 fL (79.0-98.0); PLATELET COUNT (AUTO) 573 K/uL (130-430); RED BLOOD CELL COUNT(AUTO) 3.25 MIL/uL (4.2-6.2); RED CELL DISTRIBUTION WIDTH 15.2 % (9.0-15.0)
[2024-07-06 06:07] LABS: ANION GAP 9 (5-15); CALCIUM 8.6 mg/dL (8.4-11.0); CARBON DIOXIDE 25 mmol/L (23-29); CHLORIDE 97 mmol/L (98-107); CREATININE 0.97 mg/dL (0.55-1.30); GLUCOSE 90 mg/dL (74-106); POTASSIUM 4.8 mmol/L (3.5-5.1); SODIUM SERUM 131 mmol/L (136-145); UREA NITROGEN, BLOOD 30 mg/dL (8-21)
[2024-07-06] MEDS: ACETAMINOPHEN/CODEINE 300 MG-30 MG TABLET GT PRN (06:41)
[2024-07-06 07:54] LABS: WHITE BLOOD COUNT (AUTO) 35.9 K/uL (4.8-10.8)
[2024-07-06] MEDS ORDERED: [UNRECOGNIZED DRUG - OTHER] GT SCH (09:00)
[2024-07-06] MEDS: LISINOPRIL 10 MG TABLET (PRINIVIL) GT SCH (09:00)
[2024-07-06] MEDS ORDERED: MEROPENEM 1 GM IVPB PREMIX 50 ML IV SCH (09:00)
[2024-07-06] MEDS: MEROPENEM 1 GM in NS 100 ML IV SCH (09:43)
[2024-07-06] MEDS: MULTIVITAMINS TAB 1 TABLET GT SCH (09:43)
[2024-07-06] MEDS: ASCORBIC ACID 500 MG TABLET GT SCH (09:44)
[2024-07-06] MEDS: LANSOPRAZOLE 30 MG CAPSULE.DR GT SCH (09:44)
[2024-07-06] MEDS: NOREPINEPHRINE BITARTRATE 4 MG in D5W 246 ML IV PRN (10:51)
[2024-07-06 11:04] LABS: BAND % (MANUAL) 13 % (0-6); EOSINOPHILS % (MANUAL) 1 % (0-7); LYMPHOCYTES % (MANUAL) 1 % (20-46); MONOCYTES % (MANUAL) 10 % (0-11)
[2024-07-06 11:05] LABS: ANISOCYTOSIS 1+; BASOPHILS % (MANUAL) 0 % (0-2); PLATELET ESTIMATE INCREASED (ADEQUATE); TARGET CELLS RARE
[2024-07-06 11:15] LABS: INR 1.2 (0.8-1.2); PROTHROMBIN TIME 12.2 SECS (9.5-12.5)
[2024-07-06] MEDS: APIXABAN 2.5 MG TABLET GT SCH (12:17)
[2024-07-06] MEDS: NACL 0.9% 1,000 ML IV SCH (12:26)
[2024-07-06] MEDS: dilTIAZem HCL IVP 5 MG/ML VIAL ONE (13:50)
[2024-07-06] MEDS: dilTIAZem HCL IVP 5 MG/ML VIAL IVP ONE (13:51)
[2024-07-06] MEDS ORDERED: ADENOSINE 6MG/2ML VIAL IVP PRN (15:15)
[2024-07-06] MEDS: ADENOSINE 6MG/2ML VIAL ONE (15:21)
[2024-07-06] MEDS: ADENOSINE 6MG/2ML VIAL IVP ONE (15:23)
[2024-07-06] MEDS ORDERED: MORPHINE 2 MG/ML INJ. SYRINGE IVP PRN (16:00)
[2024-07-06] MEDS: LORazepam 2 MG/ML VIAL IVP PRN (16:09)
[2024-07-06] MEDS: ALBUMIN HUMAN 25% 100 ML IV SCH (16:41)
[2024-07-06] MEDS: ACETYLCYSTEINE 20% 4 ML VIAL (RT) INH ONE (16:52)
[2024-07-06] MEDS: INSULIN LISPRO SLIDING SCALE 100 UNITS/ML, 3 ML VIAL (humaLOG) SUBCUT PRN (17:48)
[2024-07-06] MEDS: LevALBUTEROL HCL 1.25 MG/0.5 ML *CONC.* VIAL.NEB (XOPENEX CONC.) INH SCH (20:04)
[2024-07-06] MEDS: ACETYLCYSTEINE 20% 4 ML VIAL (RT) INH SCH (20:04)
[2024-07-06] MEDS ORDERED: VANCOMYCIN HCL 500 MG in NS 100 ML IV SCH (21:00)
[2024-07-06] MEDS ORDERED: COMMUNICATION ORDER XX ONE (22:15)
[2024-07-06] MEDS ORDERED: LORazepam 2 MG/ML VIAL IVP PRN (22:30)
[2024-07-06] MEDS ORDERED: ONDANSETRON HCL 4 MG/2 ML VIAL IVP PRN (22:30)
[2024-07-06] MEDS: MORPHINE SULFATE IN 0.9 % NACL 100 ML IV PRN (22:52)
[2024-07-06] MEDS: MORPHINE 2 MG/ML INJ. SYRINGE IVP ONE (22:52)
[2024-07-07] VITALS: O2SAT 64
[2024-07-07] MEDS ORDERED: MORPHINE SULFATE IN 0.9 % NACL 100 ML IV PRN (00:15)
[2024-07-07] MEDS ORDERED: NALOXONE HCL 0.4 MG/ML AMP (NARCAN) IVP PRN (00:15)
[2024-07-07] MEDS ORDERED: MORPHINE 2 MG/ML INJ. SYRINGE IVP PRN (00:15)
[2024-07-07] MEDS: LORazepam 2 MG/ML VIAL IVP PRN (00:27)
[2024-07-07] MEDS: MORPHINE 4 MG INJ. 4 MG/ML VIAL IVP ONE (00:27)
[2024-07-07] MEDS ORDERED: PANTOPRAZOLE GRANULES PACKET 40 MG GT SCH (09:00)
[2024-07-09] MEDS ORDERED: cloNIDine HCL 0.3 MG/24 HR PATCH.TDWK TD SCH (06:00)
== END 2024-07-07 01:49 | DRG 871 ==
LOC: SED 19:06 → SIC 23:49
PROVIDERS: ADMIT Internal Medicine; ATTEND Internal Medicine
PROC: 5A0935A Assistance with Respiratory Ventilation, Less than 24 Consecutive Hours, High Flow/Velocity Cannula (ICD-10-PCS; principal; 2024-07-05)
PROC: 5A09457 Assistance with Respiratory Ventilation, 24-96 Consecutive Hours, Continuous Positive Airway Pressure (ICD-10-PCS; 2024-07-05)
DX: A41.9 Sepsis, unspecified organism (principal); J18.9 Pneumonia, unspecified organism; J96.01 Acute respiratory failure with hypoxia; R65.21 Severe sepsis with septic shock; E87.1 Hypo-osmolality and hyponatremia; G93.40 Encephalopathy, unspecified; I47.10 Supraventricular tachycardia, unspecified; E11.22 Type 2 diabetes mellitus with diabetic chronic kidney disease; I12.9 Hypertensive chronic kidney disease with stage 1 through stage 4 chronic kidney disease, or unspecified chronic kidney disease; D63.8 Anemia in other chronic diseases classified elsewhere; N18.9 Chronic kidney disease, unspecified; Z66 Do not resuscitate; F41.9 Anxiety disorder, unspecified; Z79.899 Other long term (current) drug therapy; Z91.018 Allergy to other foods
CPT/HCPCS: 36415; 36600; 71045; 80048; 80076; 82803; 82948; 83605; 85007; 85025; 85027; 85610; 85730; 87040; 87081; 93005; 94070; 94640; 94660; 94668; 96365; 99291; J0153; J2060; J2185; J2270; J3370; J3490; J7060; J7608; J7612